=== PATIENT | female | born 1965 | race Caucasian/White ===

== ENCOUNTER → 2016-11-28 | Outpatient (CLI) | payer OTHER ==
[2016-11-28 09:40] LABS: BASO % 0.5 % (0.0-1.0); EOS # 0.2 K/mm3 (0.0-0.50); LARGE UNSTAINED CELL # 0.2 K/mm3 (0.0-0.4); LARGE UNSTAINED CELL % 2.6 % (0.0-4.0); LYMPH # 2.8 K/mm3 (1.5-4.5); LYMPH % 39.4 % (24.0-44.0); MEAN CORPUSCULAR HEMOGLOBIN 34.4 pg (27.0-33.0); MEAN CORPUSCULAR HGB CONC 34.4 g/dl (32.0-36.5); MONO # 0.4 K/mm3 (0.0-0.8); MONO % 5.3 % (0.0-5.0); NEUTROPHILS # 3.5 K/mm3 (1.8-7.7); NEUTROPHILS % 49.2 % (36.0-66.0); PLATELET COUNT, AUTOMATED 227 k/mm3 (150-450); RED CELL DISTRIBUTION WIDTH 13.5 % (11.5-14.5); WHITE BLOOD COUNT 7.1 K/mm3 (4.0-10.0)
--- NOTE | 2016-11-28 09:47 | REP ---
Chest x-ray: Two views. History: Anemia, vitamin D deficiency, asthma. Comparison chest x-ray: January 26, 2009. Findings: The lungs are well inflated and free of infiltrate. The pleural angles are sharp. Cardiomediastinal silhouette is unremarkable. Pulmonary vasculature is not increased. There are minimal degenerative disc changes in the thoracic spine. Impression: No active disease. Signed by Yadiel Swain MD 11/28/2016 06:32 P
[2016-11-28 10:09] LABS: VITAMIN B12 LEVEL 247 PG/ML (247-911)
[2016-11-28 10:14] LABS: ALBUMIN 3.9 GM/DL (3.2-5.2); ALBUMIN/GLOBULIN RATIO 1.22 (1.00-1.93); ALKALINE PHOSPHATASE 88 U/L (45-117); ALT/SGPT 17 U/L (12-78); ANION GAP 6 MEQ/L (8-16); AST/SGOT 10 U/L (15-37); BILIRUBIN,TOTAL 0.5 MG/DL (0.2-1.0); BLOOD UREA NITROGEN 9 MG/DL (7-18); CALCIUM LEVEL 9.1 MG/DL (8.5-10.1); CARBON DIOXIDE LEVEL 30 MEQ/L (21-32); CHLORIDE LEVEL 107 MEQ/L (98-107); CHOLESTEROL LEVEL 170 MG/DL (<200); CREATININE FOR GFR 0.74 MG/DL (0.55-1.02); GLOMERULAR FILTRATION RATE > 60.0 (>51); GLUCOSE, FASTING 94 MG/DL (70-105); POTASSIUM SERUM 4.6 MEQ/L (3.5-5.1); SODIUM LEVEL 143 MEQ/L (136-145); TOTAL PROTEIN 7.1 GM/DL (6.4-8.2); TRIGLYCERIDES LEVEL 90 MG/DL (<150)
== END ==
LOC: M LAB 08:55
PROVIDERS: ATTEND Nurse Practitioner Family
DX: Z13.0 Encounter for screening for diseases of the blood and blood-forming organs and certain disorders involving the immune mechanism (principal); E55.9 Vitamin D deficiency, unspecified; Z13.228 Encounter for screening for other metabolic disorders; D51.8 Other vitamin B12 deficiency anemias; J45.909 Unspecified asthma, uncomplicated

== ENCOUNTER → 2017-01-17 | Outpatient (CLI) | payer OTHER ==
[~2017-01-17] VITALS: Ht 160 cm; Wt 74.8 kg
[~2017-01-17] MED LIST: ALBU17IN INH; LIDOCAINE 2% INJ 100 MG/5 ML SDV (FOR ANES.) As Ordered ONE; NS 1,000 ML IV SCH; PROPOFOL 200 MG/20 ML VIAL As Ordered ONE; SING10TA32 PO; VITA100037 PO; ZYRT10TA2 PO
--- NOTE | 2017-01-17 10:25 | ROOR ---
Patient Name: Kelly Vidal Procedure Date: 01/17/2017 10:03 AM Date of : 1965 Age: 51 Room: [facility] Gender: Female Note Status: Finalized Procedure: Colonoscopy Indications: Screening for colorectal malignant neoplasm Providers: Damian HILLS MD Referring MD: Anel WILKINSON NP Requesting Provider: Medicines: Monitored Anesthesia Care Complications: No immediate complications. Procedure: Pre-Anesthesia Assessment: - The heart rate, respiratory rate, oxygen saturations, blood pressure, adequacy of pulmonary ventilation, and response to care were monitored throughout the procedure. The Colonoscope was introduced through the anus and advanced to the terminal ileum, with identification of the appendiceal orifice and IC valve. The colonoscopy was performed without difficulty. The patient tolerated the procedure well. The quality of the bowel preparation was good. Findings: The perianal and digital rectal examinations were normal. Internal hemorrhoids were found during retroflexion. The hemorrhoids were medium-sized. Two sessile polyps were found in the sigmoid colon. The polyps were 3 to 4 mm in size. These polyps were removed with a cold snare. Resection and retrieval were complete. Two sessile polyps were found in the hepatic flexure. The polyps were 3 to 4 mm in size. These polyps were removed with a cold snare. Resection and retrieval were complete. Multiple medium-mouthed diverticula were found in the sigmoid colon. The exam was otherwise without abnormality on direct and retroflexion views. Impression: - Internal hemorrhoids. - Two 3 to 4 mm polyps in the sigmoid colon, removed with a cold snare. Resected and retrieved. - Two 3 to 4 mm polyps at the hepatic flexure, removed with a cold snare. Resected and retrieved. - Diverticulosis in the sigmoid colon. - The examination was otherwise normal on direct and retroflexion views. Recommendation: - Telephone endoscopist for pathology results in 2 weeks. - If the pathology report reveals adenomatous tissue, then repeat the colonoscopy for surveillance in 3 years. Damian Hills MD Damian HILLS MD 01/17/2017 10:24:51 AM This report has been signed electronically. Number of Addenda: 0 Note Initiated On: 01/17/2017 10:03 AM Estimated Blood Loss: Estimated blood loss: none.
[2017-01-17 10:55] VITALS: BP 125/75
== END | disposition home or self-care (01) ==
LOC: M OPP 08:47
PROVIDERS: ATTEND Internal Medicine Gastroenterology
DX: Z12.11 Encounter for screening for malignant neoplasm of colon (principal); K63.5 Polyp of colon; D12.3 Benign neoplasm of transverse colon; K64.8 Other hemorrhoids; K57.30 Diverticulosis of large intestine without perforation or abscess without bleeding; J45.909 Unspecified asthma, uncomplicated; R06.83 Snoring; Z85.41 Personal history of malignant neoplasm of cervix uteri; D25.9 Leiomyoma of uterus, unspecified; F17.210 Nicotine dependence, cigarettes, uncomplicated; Z96.22 Myringotomy tube(s) status; Z88.0 Allergy status to penicillin; Z88.8 Allergy status to other drugs, medicaments and biological substances; Z79.899 Other long term (current) drug therapy; Z80.1 Family history of malignant neoplasm of trachea, bronchus and lung

== ENCOUNTER → 2017-01-24 | Outpatient (CLI) | payer OTHER ==
[~2017-01-24] MED LIST changes: -LIDOCAINE 2% INJ 100 MG/5 ML SDV (FOR ANES.) As Ordered ONE; -NS 1,000 ML IV SCH; -PROPOFOL 200 MG/20 ML VIAL As Ordered ONE
--- NOTE | 2017-01-24 13:19 | REPMRS ---
Patient History The patient states she had a clinical breast exam in 2016. No known family history of cancer. Digital Mammo Screening Bilat: January 24, 2017 - Exam #: [id number] Bilateral CC and MLO view(s) were taken. Technologist: Keri Bliss, Technologist Prior study comparison: September 02, 2008, bilateral digital mammo screening bilat, performed at [facility]. FINDINGS: There are scattered fibroglandular densities. There has been no change in the appearance of the mammogram from the prior studies. There is a mild amount of residual fibroglandular tissue which is fairly symmetric. There is no interval development of dominant mass, architectural distortion, or clustered microcalcification suggestive of malignancy. ASSESSMENT: BI-RADS/ACR category 1 mammogram. Negative. Recommendation Routine screening mammogram in 1 year (for women over age 40). This mammogram was interpreted with the aid of an FDA-approved computer-aided dectection system. Electronically Signed By: Roderick Ford MD 01/24/17 [id number]
== END ==
LOC: M RAD 12:39
PROVIDERS: ATTEND Nurse Practitioner Family
DX: N64.59 Other signs and symptoms in breast (principal); Z12.31 Encounter for screening mammogram for malignant neoplasm of breast

== ENCOUNTER → 2017-02-14 | Outpatient (REF) | payer OTHER ==
[2017-02-14 19:01] LABS: BASO % 0.3 % (0.0-1.0); EOS # 0.3 K/mm3 (0.0-0.50); EOS % 3.2 % (0.0-3.0); LARGE UNSTAINED CELL # 0.2 K/mm3 (0.0-0.4); LARGE UNSTAINED CELL % 2.1 % (0.0-4.0); LYMPH # 3.1 K/mm3 (1.5-4.5); LYMPH % 30.4 % (24.0-44.0); MEAN CORPUSCULAR HEMOGLOBIN 32.3 pg (27.0-33.0); MEAN CORPUSCULAR HGB CONC 32.4 g/dl (32.0-36.5); MEAN CORPUSCULAR VOLUME 99.6 fl (80.0-96.0); MONO # 0.6 K/mm3 (0.0-0.8); NEUTROPHILS # 5.5 K/mm3 (1.8-7.7); PLATELET COUNT, AUTOMATED 298 k/mm3 (150-450); RED CELL DISTRIBUTION WIDTH 14.3 % (11.5-14.5); WHITE BLOOD COUNT 9.4 K/mm3 (4.0-10.0)
[2017-02-14 19:02] LABS: ANION GAP 6 MEQ/L (8-16); BLOOD UREA NITROGEN 8 MG/DL (7-18); CALCIUM LEVEL 9.2 MG/DL (8.5-10.1); CARBON DIOXIDE LEVEL 28 MEQ/L (21-32); CHLORIDE LEVEL 107 MEQ/L (98-107); CREATININE FOR GFR 0.65 MG/DL (0.55-1.02); GLOMERULAR FILTRATION RATE > 60.0 (>51); GLUCOSE, FASTING 83 MG/DL (70-105); SODIUM LEVEL 141 MEQ/L (136-145)
== END ==
LOC: M LAB REF 16:34
PROVIDERS: ATTEND Nurse Practitioner Family
DX: E55.9 Vitamin D deficiency, unspecified (principal); E78.89 Other lipoprotein metabolism disorders; Z12.39 Encounter for other screening for malignant neoplasm of breast; Z11.4 Encounter for screening for human immunodeficiency virus [HIV]

== ENCOUNTER → 2017-03-25 | Outpatient (CLI) | payer OTHER | LOC: M LAB 11:48 | PROVIDERS: ATTEND Nurse Practitioner Family | DX: Z11.59 Encounter for screening for other viral diseases (principal) ==

== ENCOUNTER → 2017-03-29 | Outpatient (CLI) | payer OTHER | LOC: M LAB 12:22 | PROVIDERS: ATTEND Nurse Practitioner Family | DX: Z13.9 Encounter for screening, unspecified (principal) ==

== ENCOUNTER → 2018-01-30 | Outpatient (CLI) | payer OTHER | LOC: M RAD 14:14 | DX: Z12.31 Encounter for screening mammogram for malignant neoplasm of breast (principal); E65 Localized adiposity | CPT/HCPCS: 77067 ==

== ENCOUNTER → 2018-04-07 | Outpatient (REF) | payer OTHER, MEDICAID ==
[2018-04-07 19:14] LABS: BASO % 0.5 % (0.0-1.0); HEMOGLOBIN 16.9 g/dl (12.0-15.5); IMMATURE GRANULOCYTE % 0.5 % (0-3.0); LYMPH # 2.9 10^3/uL (1.5-4.5); LYMPH % 33.8 % (24.0-44.0); MEAN CORPUSCULAR HEMOGLOBIN 32.9 pg (27.0-33.0); MEAN CORPUSCULAR HGB CONC 33.1 g/dl (32.0-36.5); MEAN CORPUSCULAR VOLUME 99.2 fl (80.0-96.0); MONO # 0.6 10^3/uL (0.0-0.8); MONO % 6.5 % (0.0-5.0); NEUTROPHILS % 58.7 % (36.0-66.0); PLATELET COUNT, AUTOMATED 283 10^3/uL (150-450); RED BLOOD COUNT 5.14 10^6/uL (4.00-5.40); RED CELL DISTRIBUTION WIDTH 16.5 % (11.5-14.5); WHITE BLOOD COUNT 8.5 10^3/uL (4.0-10.0)
[2018-04-07 19:59] LABS: ESTIMATED AVERAGE GLUCOSE 134 MG/DL (60-110); HEMOGLOBIN A1c 6.3 %
[2018-04-07 20:00] LABS: HEPATITIS C VIRUS ABY INDEX < 0.0 INDEX (<0.8)
[2018-04-07 20:01] LABS: HIV 1&2 SCREEN CENTAUR NEGATIVE (NEGATIVE)
[2018-04-07 23:11] LABS: ALBUMIN 3.9 GM/DL (3.2-5.2); ALBUMIN/GLOBULIN RATIO 1.08 (1.00-1.93); ALKALINE PHOSPHATASE 87 U/L (45-117); ALT/SGPT 18 U/L (12-78); ANION GAP 8 MEQ/L (8-16); AST/SGOT 12 U/L (7-37); BILIRUBIN,TOTAL 0.4 MG/DL (0.2-1.0); BLOOD UREA NITROGEN 9 MG/DL (7-18); CALCIUM LEVEL 8.9 MG/DL (8.5-10.1); CARBON DIOXIDE LEVEL 28 MEQ/L (21-32); CHLORIDE LEVEL 106 MEQ/L (98-107); CHOLESTEROL LEVEL 215 MG/DL (<200); CHOLESTEROL RISK RATIO 3.909 (<5); FERRITIN 63 NG/ML (8-252); GLOMERULAR FILTRATION RATE > 60.0 (>51); GLUCOSE, FASTING 85 MG/DL (70-100); HDL CHOLESTEROL 55 MG/DL (>40); IRON (FE) 77 UG/DL (50-170); LDL CHOLESTEROL 132.8 MG/DL (<100); NON-HDL-C 160 MG/DL; POTASSIUM SERUM 4.7 MEQ/L (3.5-5.1); SODIUM LEVEL 142 MEQ/L (136-145); TOTAL PROTEIN 7.5 GM/DL (6.4-8.2); TRIGLYCERIDES LEVEL 136 MG/DL (<150)
== END ==
LOC: M LAB REF 17:50
DX: Z13.29 Encounter for screening for other suspected endocrine disorder (principal)

== ENCOUNTER → 2018-07-29 | Outpatient (REF) | payer OTHER ==
[2018-07-29 17:11] LABS: CARBOXYHEMOGLOBIN 6.2 % (0.0-1.5)
[2018-07-31 08:06] LABS: ERYTHROPOIETIN 19.7 mIU/mL (2.6-18.5)
== END ==
LOC: M LAB REF 16:22
DX: D75.1 Secondary polycythemia (principal)

== ENCOUNTER → 2019-06-19 | Outpatient (REF) | payer MEDICARE, MEDICAID ==
[~2019-06-19] MED LIST changes: +ASPI81TA85 PO; +OCEA0.654 NARES; +STIO1AER IN; +VENTAER INH; -VITA100037 PO; +VITA100067 PO; +ZYRT10CA5 PO; -ZYRT10TA2 PO
== END ==
LOC: M LAB REF 16:16
PROVIDERS: ATTEND Nurse Practitioner Family
DX: J02.9 Acute pharyngitis, unspecified (principal)

== ENCOUNTER 2021-05-11 19:29 | Emergency (ER) | payer MEDICAID, MEDICARE, OTHER ==
[~2021-05-11] VITALS: Ht 160 cm; Wt 54.5 kg
[~2021-05-11 19:29] MED LIST changes: +ALB2.5NEB INH; -ASPI81TA85 PO; +ASPI81TA86 PO; +ATRO0.063 INH; +CETI10CA13 PO; +DULE200A INH; +ONDA8TAB8 PO; +OXYC1SOL3 PO; +PROC5TAB57 PO; +TRAZ-252 PO; +VIBR100C FT; +VIBR100C PO; +VIBR50SY PO
[2021-05-11] MEDS ORDERED: LIDOCAINE 2% 5ML JELLY UROJET TOP ONE (20:00)
[2021-05-11] MEDS ORDERED: LIDOCAINE 2% 5ML JELLY UROJET As Ordered ONE (20:01)
--- NOTE | 2021-05-11 20:37 | REP ---
INDICATION: abdominal pain, constipation COMPARISON: None. TECHNIQUE: Supine view of the abdomen and pelvis. FINDINGS: Percutaneous gastrostomy tube appears to be in satisfactory position. Air and stool-filled loops of small and large bowel are relatively nonspecific in appearance. No organomegaly. No abnormal calcifications. Skeletal structures intact. IMPRESSION: Bowel gas pattern is nonspecific. If the patient remains symptomatic consider CT of the abdomen and pelvis for further investigation. <Electronically signed by Hung Elizondo > 05/11/21 [id number]
[2021-05-11] MEDS ORDERED: ANUSOL HC 25MG SUPP PR ONE (20:45)
[2021-05-11 21:27] LABS: HEMATOCRIT 32.4 % (36.0-47.0); HEMOGLOBIN 10.5 g/dl (12.0-15.5); MEAN CORPUSCULAR HEMOGLOBIN 31.7 pg (27.0-33.0); MEAN CORPUSCULAR HGB CONC 32.4 g/dl (32.0-36.5); MEAN CORPUSCULAR VOLUME 97.9 fl (80.0-96.0); PLATELET COUNT, AUTOMATED 307 10^3/uL (150-450); RED BLOOD COUNT 3.31 10^6/uL (4.00-5.40); WHITE BLOOD COUNT 7.1 10^3/uL (4.0-10.0)
[2021-05-11 21:33] LABS: ALT/SGPT 37 U/L (12-78); BILIRUBIN,DIRECT < 0.1 MG/DL (0.0-0.2); BILIRUBIN,TOTAL 0.2 MG/DL (0.2-1.0); LIPASE 81 U/L (73-393); TOTAL PROTEIN 6.1 GM/DL (6.4-8.2)
[2021-05-11] MEDS ORDERED: ISOVUE-370 76% 100ML VIAL As Ordered ONE (21:55)
[2021-05-11 22:25] LABS: ANISOCYTOSIS 1+; ATYPICAL LYMPH 8 % (0-5); LYMPHOCYTES 14 % (16-44); METAMYELOCYTES 2 % (0-0); MONOCYTES 13 % (0-5); MYELOCYTES 5 % (0-0); NEUTROPHILS 51 % (28-66); PLATELET ESTIMATE NORMAL (NORMAL); POLYCHROMASIA 1+
--- NOTE | 2021-05-12 00:36 | REPVR ---
PROCEDURE INFORMATION: Exam: CT Abdomen And Pelvis With Contrast Exam date and time: 05/11/2021 10:18 PM Age: 56 years old Clinical indication: Abdominal pain; Localized; Other: Rectal; Additional info: Rectal pain TECHNIQUE: Imaging protocol: Computed tomography of the abdomen and pelvis with contrast. Radiation optimization: All CT scans at this facility use at least one of these dose optimization techniques: automated exposure control; mA and/or kV adjustment per patient size (includes targeted exams where dose is matched to clinical indication); or iterative reconstruction. Contrast material: ISOVUE 370; Contrast volume: 100 ml; Contrast route: INTRAVENOUS (IV); COMPARISON: CR Abdomen,Flat Plate KUB 05/11/2021 7:50 PM FINDINGS: Tubes, catheters and devices: Gastrostomy tube is in the stomach. Lungs: There is bibasilar atelectasis. Liver: There are innumerable heterogeneously hypodense lesions in the liver, some of which are confluent, largest confluency lesion in the right lower lobe measuring up to 5.5 cm in conglomerate. Gallbladder and bile ducts: The gallbladder is normal. No intrahepatic or extrahepatic biliary ductal dilatation is seen. Pancreas: There is pancreatic ductal prominence, the pancreatic duct measuring 3.4 mm. No focal pancreatic mass is seen. Spleen: Normal. No splenomegaly. Adrenal glands: No adrenal mass is identified. The adrenal glands appear plump bilaterally. Kidneys and ureters: There is no evidence of hydronephrosis. No renal, ureteral, or bladder calculi are seen. There is a simple appearing 11 mm left renal cortical cyst. Stomach and bowel: Retained fecal material is seen in the colon, most prominent in the rectum. There is mural thickening of the rectosigmoid colon. Correlate with clinical information regarding colitis. No bowel obstruction is seen. Appendix: The appendix is not clearly visualized. Correlate with surgical history. There is no focal inflammatory process in the right lower quadrant to indicate acute appendicitis. Intraperitoneal space: There is no free intraperitoneal air visualized. There is no evidence of free intraperitoneal or pelvic fluid. Vasculature: Atherosclerotic vascular disease is noted. There is no evidence of an abdominal aortic aneurysm. Lymph nodes: No lymphadenopathy is seen. Urinary bladder: The bladder is normal. Reproductive: Unremarkable as visualized. Bones/joints: No acute fracture or destructive osseous lesions identified. IMPRESSION: 1. Numerous hepatic lesions, some of which are confluent, consistent with metastatic disease. Correlate with history of primary neoplasm. 2. Gastrostomy tube in the stomach. 3. Rectosigmoid mural thickening indicates colitis. No bowel obstruction. COMMENTS: Consistent with the [employer]'s Incidental Findings Committee white paper (J Am Eyal Radiol 2018): Any incidental renal lesion less than 1 cm or classified as too small to characterize, or any incidental cystic renal lesion characterized as simple-appearing, is likely benign. No follow-up imaging is recommended for these lesions per consensus recommendations based on imaging criteria. Electronically signed by: Ladonna Perdomo On 05/12/2021 00:35:35 AM
[2021-05-12] MEDS ORDERED: FLEET ENEMA PR ONE (00:50)
[2021-05-12] MEDS ORDERED: SENN8.8S11 PEG (00:53)
[2021-05-12] MEDS ORDERED: MIRA3350 PO (00:53)
[2021-05-12] MEDS ORDERED: ANUS25SU PR (00:54)
[2021-05-12] MEDS ORDERED: ONDANSETRON 4MG/2ML VIAL IV ONE (01:50)
[2021-05-12 02:12] VITALS: BP 112/66
--- NOTE | 2021-05-12 07:51 | ED PDOC ---
Post-Departure Follow-Up radiology repor tfaxed to spencer Linares Sarah MD May 12, 2021 07:51
[2021-06-28] MEDS ORDERED: ACET1TAB55 PEG (10:52)
[2021-06-28] MEDS ORDERED: GOOD8.6T2 PEG (10:52)
== END 2021-05-12 02:15 | disposition home or self-care (01) ==
LOC: M ED 19:29
DX: K59.00 Constipation, unspecified (principal); K64.9 Unspecified hemorrhoids; Z93.1 Gastrostomy status; J44.9 Chronic obstructive pulmonary disease, unspecified; K76.9 Liver disease, unspecified; Z79.899 Other long term (current) drug therapy; Z88.0 Allergy status to penicillin; Z88.2 Allergy status to sulfonamides; Z88.8 Allergy status to other drugs, medicaments and biological substances
CPT/HCPCS: 36415; 74018; 74177; 80047; 80076; 83605; 83690; 85025; 93041; 96374; 99284; J2405; Q9967

== ENCOUNTER 2021-05-23 09:47 | Emergency (ER) | payer MEDICAID, MEDICARE, OTHER ==
[~2021-05-23] VITALS: Ht 160 cm; Wt 53.6 kg
[~2021-05-23 09:47] MED LIST changes: +ANUS25SU PR; +MIRA3350 PO; +SENN8.8S11 PEG
[2021-05-23] MEDS ORDERED: METO1TAB87 PEG (09:59)
[2021-05-23] MEDS ORDERED: ISOVUE-370 76% 100ML VIAL As Ordered ONE (11:07)
--- NOTE | 2021-05-23 12:14 | REPVR ---
PROCEDURE INFORMATION: Exam: CT Neck With Contrast Exam date and time: 05/23/2021 11:13 AM Age: 56 years old Clinical indication: Mass, lump, or swelling in neck; Other: Tracheostomy site; Prior surgery; Additional info: Swelling R/O abscess at tracheostomy site TECHNIQUE: Imaging protocol: Computed tomography images of the neck with contrast. Radiation optimization: All CT scans at this facility use at least one of these dose optimization techniques: automated exposure control; mA and/or kV adjustment per patient size (includes targeted exams where dose is matched to clinical indication); or iterative reconstruction. Contrast material: ISOVUE 370; Contrast volume: 75 ml; Contrast route: INTRAVENOUS (IV); COMPARISON: No relevant prior studies available. FINDINGS: Nasopharynx: Unremarkable. Oropharynx: Unremarkable. No significant tonsillar enlargement. Hypopharynx: There may be focal soft tissue thickening along the left posterior hypopharyngeal wall. Larynx: There is masslike thickening of the left aryepiglottic fold and false cord. The left piriform sinus is effaced. Retropharyngeal space: Unremarkable. Submandibular/Parotid glands: Normal. Glands are normal in size. Thyroid: Normal. No enlarged or calcified nodules. Lymph nodes: Unremarkable. No lymphadenopathy. Trachea: Tracheostomy tube is in place. Lungs: Unremarkable as visualized. Bones/joints: Unremarkable. No acute fracture. Soft tissues: There is a suggestion of soft tissue induration and focal skin thickening at the tracheostomy insertion site. There is no well delineated fluid collection to suggest abscess. IMPRESSION: 1. Indwelling tracheostomy tube with soft tissue induration and ill-defined fluid at the insertion site. No well delineated fluid collection to suggest abscess. 2. Masslike thickening of the left aryepiglottic fold and false cord, worrisome for neoplasm. Electronically signed by: Heather Valverde On 05/23/2021 12:14:13 PM
[2021-05-23] MEDS ORDERED: AMPICILLIN SOD/SULBACTAM SOD 1.5 GM in D5W MINI-BAG PLUS 50 ML IV ONE (12:45)
[2021-05-23] MEDS ORDERED: AUGM875T28 PO (13:35)
[2021-05-23 14:05] VITALS: BP 105/56
--- NOTE | 2021-05-24 10:19 | ED PDOC ---
Post-Departure Follow-Up dr brady and dr morse faxed formal report of ct neck for fu Andreea Aguilar MD May 24, 2021 10:19
== END 2021-05-23 14:07 | disposition home or self-care (01) ==
LOC: M ED 09:47
DX: J95.02 Infection of tracheostomy stoma (principal); J44.9 Chronic obstructive pulmonary disease, unspecified; E78.5 Hyperlipidemia, unspecified; C34.90 Malignant neoplasm of unspecified part of unspecified bronchus or lung; F17.200 Nicotine dependence, unspecified, uncomplicated; Z79.899 Other long term (current) drug therapy; Z88.0 Allergy status to penicillin; Z88.2 Allergy status to sulfonamides; Z88.8 Allergy status to other drugs, medicaments and biological substances
CPT/HCPCS: 70491; 80047; 96365; 99284; Q9967

== ENCOUNTER → 2021-06-30 | Outpatient (CLI) | payer OTHER ==
[~2021-06-30] MED LIST changes: +ACET1TAB55 PEG; +AUGM875T28 PO; +GOOD8.6T2 PEG; +METO1TAB87 PEG
--- NOTE | 2021-06-30 14:42 | RADONC.CN ---
Radiation Oncology Hx/Consult Radiation Oncology Consult Date of Service: Jun 30, 2021 Pt Identifier Kelly Vidal is a 56 year old female former smoker who presented with subacute hoarseness, throat pain and acute respiratory failure in April 2021. 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 She underwent staging studies which showed innumerable liver metastases. She had a tracheostomy and PEG She was started on chemotherapy as an inpatient at [facility] on 04/24/21. She has subsequently completed 4 cycles of carboplatin/etoposide and is beginning atezolizumab maintenance. She is seen today for consideration of consolidative RT, and also for evaluation of a left supraglottic lesion of uncertain origin. Diagnosis/Treatment History Oncologic History 2019 noted onset of sore throat 2020 noted onset of hoarseness March-April 2021 Increasing SOB 04/04/21 Presented to [facility] with hypoxia, was found to have mediastinal mass and extensive RLL pneumonia/atelectasis and transferred to [facility] ICU. 04/05/21 CT chest ([facility]) with 8.7 x 7.0 cm mediastinal mass, RLL collapse versus pneumonia 04/17/21 Mediastinoscopy and biopsy showing small cell carcinoma 04/22/21 MRI brain negative 04/22/21 CT abdomen pelvis with innumerable liver metastases 04/25/21 Bone scan negative 05/02/21 Discharged home, received 1st cycle chemotherapy @ [facility] 05/23/21 Presented to [facility] ED with swelling at trach site, CT neck showing supraglottic mass Chemotherapy Carboplatin/etoposide/atezolizumab 4 cycles 04/24/21-06/29/21 Interval History Here with her son who is the primary specialist wound care at this time. He reports Kelly has remained on 8L trach collar O2 at home, they have not attempted to wean. She is tolerating tube feeds. Plan is for tracheostomy exchange and biopsy of supraglottic mass on 07/11/21. She has no pain today. Trach puts out clear mucus which is easily cleared. She has good cough. Reports main goal is to eat/drink/ and talk again. Son is [id number] dad and they do not see need for home care at this time. Past Medical History: COPD Exphysema Tachycardia Past Surgical History: Appendectomy PEG Trach Mediastinoscopy Family History: No family history of cancer Social History: Former smoker 90 pack year, quit at time of cancer diagnosis Never drinker Allergies / Meds Allergies: Coded Allergies: Penicillins (Verified Adverse Reaction, Mild, restlessness, fidgety, 06/28/21) Sulfa (Sulfonamide Antibiotics) (Verified Adverse Reaction, Mild, nervous, 06/28/21) levofloxacin (Verified Adverse Reaction, Mild, nervousness, 06/28/21) Home Meds Active Scripts Sennosides (Senna) 8.8 Mg/5 Ml Syrup, 10 ML PEG BID for 30 Days, #600 ML Prov:JAIRON PERALTA MD 05/12/21 Ondansetron (Ondansetron Odt) 8 Mg Tab.rapdis, 8 MG PO Q8HP PRN for NAUSEA OR VOMITING, #24 TAB 11 Refills Prov:ELAINA MONTERO MD 05/05/21 Reported Medications Acetaminophen (Acetaminophen) 325 Mg Tablet, 2 TAB PEG PRN PRN for PAIN LEVEL 1-4 06/28/21 Sennosides/Docusate Sodium (Stimulant Laxative Plus Tablet) 1 Each Tablet, 1 PEG QHS 06/28/21 Metoprolol Tartrate (Metoprolol Tartrate) 25 Mg Tablet, 12.5 MG PEG BID 05/23/21 Trazodone HCl (Trazodone HCl) 50 Mg Tablet, 1 TAB PO QPM for 30 Days, #30 TAB 05/04/21 Oxycodone HCl (Oxycodone HCl) 5 Mg/5 Ml Solution, 2-5 ML PO QHS PRN for ANXIETY MDD 30 Milliliter(s) for 5 Days, #150 ML 05/04/21 Ipratropium [place] (Atrovent Hfa) 12.9 Gm Hfa.aer.ad, 2 PUFF INH QID, #12.9 GRAM 05/04/21 Albuterol Sulfate (Albuterol Sulfate) 2.5 Mg/0.5 Ml Vial.neb, 2.5 MG INH, ZENAIDA 05/04/21 Albuterol Sulfate (Ventolin Hfa) 108 Mcg/Act Aer, 2 PUFF INH Q4-6HP PRN for wheezing for 30 Days, #1 INHALER 07/29/18 Montelukast Sodium (Singulair) 10 Mg Tab, 10 MG PO DAILY, TAB 01/10/17 Discontinued Reported Medications Prochlorperazine (Prochlorperazine Maleate) 5 Mg Tablet, 1 TAB PO QID for psychosis for 5 Days, #20 TAB 05/04/21 Cetirizine HCl (Allergy Relief) 10 Mg Capsule, 1 CAP PO DAILY for allergy symptoms for 30 Days, #30 CAP 05/04/21 Discontinued Scripts Amoxicillin/Potassium Clav (Augmentin 875-125 Tablet) 1 Each Tablet, 1 TAB PO BID for 10 Days, #20 TAB Prov:Martin Marin M.D. 05/23/21 Polyethylene Glycol 3350 (Miralax) 119 Gm Powder, 17 GM PO QAM, #1 BOTTLE dilute in first water flush in morning Prov:JAIRON PERALTA MD 05/12/21 Doxycycline Hyclate (Vibramycin) 100 Mg Capsule, 100 MG FT Q12H for 10 Days, #20 CAP 1 Refill MAY OPEN CAPSULE, MIX CONTENT WITH WATER AND ADMINISTER THROUGH G-TUBE. FLUSH TUBE WITH WATER AFTERWARD Prov:ELAINA MONTERO MD 05/05/21 Review of Systems General: Reports: ROS Unobtainable (Non-verbal) Vital Signs Wt 111 lbs T 96.3 P 79 RR 20 BP 88/54 O2 100% on 8L Pain 0 Fatigue 0 General Exam: Alert, Cooperative, No Acute Distress Eye Exam: PERRLA, EOMI ENT EXAM: Other ENT (Complete head and neck exam performed: She is edentulous, there are no visible lesions in the oral mucosal tongue, FOM, soft palate, or oropharyx. There are no palpable lesions in the buccal, gingival, FOM, BOT or tonsils. There is no trismus, the neck is supple, no palpable adenopathy, the trach site is CDI, there is no jose angel-stomal swelling or induration, there is preserved laryngeal crepitus. ) Chest Exam: Clear to auscultation, Normal air movement, Wheezing (Scattered expiratory wheezes ) Heart Exam: Rate Normal, Regular Rhythm Abdomen Exam: Soft, Other (PEG site CDI) Extremity Exam: Edema Skin Exam: Nl turgor and temperature; Negative: Lesion Neuro Exam: Normal Gait, Cranial Nerves 3-12 NL Psych Exam: Mental status NL Other Physical Findings Laryngoscopy: The patient provided consent to be scoped. Cetacaine was introduced in the right nare for anesthesia, the scope was introduced and passed without difficulty to the nasopharynx which appeared normal and without mucosal lesions, the scope was then passed to the oropharynx, there were no lesions present on the posterior pharyngeal wall. The BL BOT were symmetrical and clear with the usual lymphoid appearance, the vallecula was clear, the epiglottis was upright in orientation and there were no lesions on the lingual surface. The right pyriform sinus os is patent, the left however is not, there are no lesions visible there but there is mass effect toward the left AE fold. The right vocal fold is freely mobile and without lesion. The left supraglottis there is a exophytic red lobulated tumor which has fixed the left hemilarynx, the lesion is 3 cm AP in extent, it is bounded by the laryngeal surface of the epiglottis anteriorly, the posterior pharyngeal wall posteriorly, the left AE fold laterally and it does not involve the right larynx medially. There is s ignificant mass effect to the left. The scope was withdrawn without incident and the patient tolerated the procedure well. Diagnostic and Laboratory Diagnostic Review Radiologic images, relevant labs and pathology reports were personally reviewed and discussed with Ms. Vidal. Assessment and Plan Impression Ms. Vidal is a 56 year old female former smoker who presented with subacute hoarseness, throat pain and acute respiratory failure in April 2021. 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 She underwent staging studies which showed innumerable liver metastases. She had a tracheostomy and PEG She was started on chemotherapy as an inpatient at [facility] on 04/24/21. She has subsequently completed 4 cycles of carboplatin/etoposide and is beginning atezolizumab maintenance. She is seen today for consideration of consolidative RT, and also for evaluation of a left supraglottic lesion of uncertain origin. 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 Vidal regarding the diagnosis at hand and available therapeutic options. With respect to her symptoms, I believe she would tolerate a wean from her current 8L trach collar O2. I suggest that they strive to minimize to 2-3L in the coming days, this way she would be able to use a portable concentrator which would improve her mobility and QOL at home. Her main issue/bother is the trach which she badly wants to be rid of. I reviewed her course, imaging, and pathology to date which is complicated. She has a small cell carcinoma. Based on the chest scan from 04/05/21 which showed a large mediastinal mass and a possible ANA MARIA lesion which could represent, but is not conclusive for, a lung primary. 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 The presence of a tumor in the left hemilarynx (which was not apparent during her course at [facility] as it was not imaged) and the morphology (polypoid) on exam today supports this. Just as likely however based on her extensive smoking history and course to date, she may have synchronous primary cancers, primary SCLC of the left lung, and primary SCC of the supraglottis, she has no neck adenopathy associated with the lesion on CT neck from May. I favor that the laryngeal lesion is SCC based on the apparent lack of response to carboplatin/etoposide (it is persistent after 4 cycles), this is in contrast to the chest disease which I believe has responded although dedicated response assessment imaging is pending (the upper mediastinum was visible on the CT neck from May in the midst of chemotherapy and there was marked regression of the mass). At any rate, she has pending biopsy of the supraglottic mass which will answer this question decisively. This will happen on 07/11/21. With respect to current systemic therapy Dr. Jamison is continuing Atezolizumab maintenance. He plans to re-image soon. Knowing that the mediastinal mass was small cell carcinoma, I propose that we pursue consolidative RT to the chest to mitigate the risk of local relapse, this is supported by the CREST study which showed an advantage to consolidative chest RT, particularly those with residual mass. With respect to the larynx, I would offer her the same treatment regardless of the histology, given the oncologic priority of systemic therapy in the management of extensive small cell carcinoma, I would not give definitive treatment to this site rather 10-15 fractions of palliative RT. I envision 45 Gy in 15 fractions to both sites simultaneously with 3D planning and daily CBCT. We may be able to treat with a monoisocentric setup depending on the extent of the residual chest volume. With respect to the brain, I would wait to obtain MRI head until after completion of RT. Based on her response to this and the results of the remaining body staging imaging we can weigh the potential risks versus benefits of PCI. I did discuss prognosis with them today as they both wanted my opinion. I discussed that the usual life expectancy of SCLC is measured in months-few years with treatment, and that initial response to systemic therapy is good, but that it does not guarantee lasting remission. My goals for palliative RT are to improve her respiratory status and allow her to be free of the tracheostomy by treating the larynx, and to prevent relapse in the mediastinum. We discussed the logistics of receiving radiation therapy in detail including the need for a 1-time planning session. This can occur next week. We reviewed the side effects of RT, including fatigue, skin reaction, esophagitis and pneumonitis. After discussing the risks, benefits and alternatives to radiation therapy, Ms. Vidal was amenable to pursuing radiotherapy. All questions were answered to the patient's satisfaction. We instructed the patient that if there were any questions,concerns or changes in clinical status in the interim to contact us. Recommendations Palliative RT to mediastinum/larynx (will aim to start tx post biopsy on 07/11/21) 30-45 Gy in 10-15 fractions 3D with daily CBCT Portable O2 concentrator Rx to [facility] Billing Statement Total time of [67] minutes was spent preparing for the visit [3], obtaining HPI [10], examining the patient [10], reviewing diagnostic tests [11], discussing management options [18], coordinating care [6], and writing this note [9]. RADHA TAVAREZ MD Jun 30, 2021 13:27
== END ==
LOC: M ONCR 09:51
PROVIDERS: ATTEND General Practice
DX: C34.90 Malignant neoplasm of unspecified part of unspecified bronchus or lung (principal); C78.7 Secondary malignant neoplasm of liver and intrahepatic bile duct; J44.9 Chronic obstructive pulmonary disease, unspecified; Z72.0 Tobacco use; Z88.0 Allergy status to penicillin; Z88.1 Allergy status to other antibiotic agents; Z92.21 Personal history of antineoplastic chemotherapy; Z93.0 Tracheostomy status; Z93.1 Gastrostomy status
CPT/HCPCS: 31575; G0463

== ENCOUNTER → 2021-07-03 | Outpatient (CLI) | payer OTHER ==
[~2021-07-03] MED LIST changes: +ISOVUE-370 76% 100ML VIAL As Ordered ONE
--- NOTE | 2021-07-05 05:50 | REP ---
INDICATION: LUNG CA COMPARISON: Outside examination dated 04/05/2021 TECHNIQUE: Axial contrast enhanced images from the thoracic inlet to the upper abdomen with coronal and sagittal reformations using 75 ml Isovue 370 intravenous contrast material. This CT examination was performed using the following dose reduction techniques: Automated exposure control, adjustment of mA and/or kv according to the patient's size, and use of iterative reconstruction technique. 75 cc Isovue 370 intravenous contrast material administered without complication. FINDINGS: Tracheostomy is in stable satisfactory position. The mediastinum demonstrates extensive conglomerate adenopathy/soft tissue, but demonstrates significant improvement as compared with prior examination. This area of masslike adenopathy currently measures roughly 3.7 x 3.9 x 2.5 cm. The tracheobronchial tree remains patent and relatively normal. Thoracic aorta, pulmonary vasculature, and heart/pericardium are relatively normal/stable with mild atherosclerotic changes to the aorta and coronary arteries again noted. No cardiomegaly or pericardial effusion. The lung pearson demonstrate mild chronic interstitial changes similar to prior examination and are otherwise well aerated. The previously noted large area of consolidation involving the right lower lobe has resolved with only minimal residual linear platelike scarring suggested anteriorly. No new consolidation or obvious suspicious nodule/mass. No effusion. No pneumothorax. The osseous structures are relatively normal and without definite acute metastatic focus. Upper abdomen demonstrates normal bilateral adrenal glands. Innumerable hepatic hypodensities concerning for metastatic foci as well as the possibility of few benign cysts and possible cavernous hemangioma in the right lobe. IMPRESSION: 1. Significant but improved mediastinal adenopathy. 2. Previous right lower lobe consolidation resolved and the lung pearson are relatively clear without obvious acute process. 3. Hepatic lesions suggesting metastatic disease as well as possible few scattered hepatic cysts and possible cavernous hemangioma in the posterior segment right lobe. <Electronically signed by Hung Elizondo > 07/05/21 0546
== END ==
LOC: M RAD 15:20
PROVIDERS: ATTEND Specialist
DX: C34.90 Malignant neoplasm of unspecified part of unspecified bronchus or lung (principal); Z93.0 Tracheostomy status; R59.0 Localized enlarged lymph nodes; I70.0 Atherosclerosis of aorta; I25.10 Atherosclerotic heart disease of native coronary artery without angina pectoris; K76.89 Other specified diseases of liver
CPT/HCPCS: 71260; Q9967

== ENCOUNTER → 2021-07-06 | Outpatient (CLI) | payer MEDICAID, MEDICARE, OTHER ==
[~2021-07-06] MED LIST changes: -ISOVUE-370 76% 100ML VIAL As Ordered ONE
== END ==
LOC: M LABSMTC 09:28
PROVIDERS: ATTEND Anesthesiology
DX: Z01.812 Encounter for preprocedural laboratory examination (principal); Z20.822 Contact with and (suspected) exposure to COVID-19

== ENCOUNTER → 2021-07-07 | Outpatient (CLI) | payer MEDICAID, MEDICARE, OTHER ==
--- NOTE | 2021-07-07 16:37 | ECGEPIP ---
[facility] Test Date: 2021-07-07 Pat Name: AMALIA HILARIO Department: Room: - Gender: Female Senior Pricing Analyst: rf : 1965 Requested By: Max Linares Order Number: [id number] Reading MD: Ottoniel Honeycutt Measurements Intervals [place] Rate: 86 P: 77 RI: 124 QRS: 63 QRSD: 80 T: 51 QT: 342 QTc: 409 Interpretive Statements Normal sinus rhythm Normal EKG Comparison tracing not on file Electronically Signed on 07-07-2021 16:37:18 EDT by Ottoniel Honeycutt
== END ==
LOC: M EKG 10:32
PROVIDERS: ATTEND Family Medicine Addiction Medicine
DX: R00.0 Tachycardia, unspecified (principal)

== ENCOUNTER 2021-07-11 07:04 | Day surgery (SDC) | payer OTHER, MEDICARE ==
[~2021-07-11] VITALS: Ht 160 cm; Wt 49.8 kg
[~2021-07-11 07:04] MED LIST changes: +LR 1,000 ML IV ONE; +dexameTHASONE 4 MG/ML 1ML VIAL (J1100 PER 1MG) IV ONE
[2021-07-11] MEDS ORDERED: LIDOCAINE 2% 100MG/5ML SDV (FOR ANES.) As Ordered ONE (08:05)
[2021-07-11] MEDS ORDERED: MIDAZOLAM INJ 2MG/2ML VIAL (J2250 PER 1MG) As Ordered ONE (08:05)
[2021-07-11] MEDS ORDERED: propofoL 200 MG/20 ML VIAL As Ordered ONE (08:05)
[2021-07-11] MEDS ORDERED: fentaNYL 100 MCG/2 ML INJECTION (J3010) As Ordered ONE ×2 (08:06→09:34)
[2021-07-11] MEDS ORDERED: LIDOCAINE W/EPINEPHRINE 1% 20ML VIAL As Ordered ONE (08:07)
[2021-07-11] MEDS ORDERED: METHYLENE BLUE 0.5% (5MG/ML) 10 ML AMP (PROVAYBLUE) As Ordered ONE (08:07)
[2021-07-11] MEDS ORDERED: OXYMETAZOLINE 0.05% NASAL SPRAY (AFRIN) As Ordered ONE (08:07)
[2021-07-11] MEDS ORDERED: ONDANSETRON 4MG/2ML VIAL As Ordered ONE (08:42)
[2021-07-11] MEDS ORDERED: KETOROLAC 60MG 2ML VIAL As Ordered ONE (08:42)
[2021-07-11] MEDS ORDERED: PHENYLephrine 500MCG 5ML (100MCG/ML) SYRINGE As Ordered ONE (08:43)
[2021-07-11] MEDS ORDERED: ROCURONIUM BROMIDE 50 MG/5 ML VIAL As Ordered ONE (09:06)
[2021-07-11] MEDS ORDERED: SUGAMMADEX SODIUM 500 MG/5 ML VIAL (BRIDION) As Ordered ONE (09:08)
[2021-07-11] MEDS ORDERED: SILVER NITRATE APPLICATOR As Ordered ONE ×3 (09:30→09:44)
[2021-07-11] MEDS ORDERED: LR 1,000 ML IV SCH (10:25)
[2021-07-11] MEDS ORDERED: ONDANSETRON 4MG/2ML VIAL IV PRN (10:25)
[2021-07-11] MEDS ORDERED: fentaNYL 100 MCG/2 ML INJECTION (J3010) IV PRN (10:25)
[2021-07-11] MEDS ORDERED: oxyCODONE 5MG TAB PO PRN (10:25)
[2021-07-11 12:45] VITALS: BP 103/55
--- NOTE | 2021-07-18 07:37 | RO ---
OPERATIVE NOTE DATE OF OPERATION: 07/11/2021 PREOPERATIVE DIAGNOSIS: Left vocal cord paralysis, dysphonia, mass, left supraglottic area and tracheostomy complication. POSTOPERATIVE DIAGNOSIS: 1. Left vocal cord paralysis, dysphonia, mass, left supraglottic area and tracheostomy complication. 2. Granulation of the tracheostomy stoma. PROCEDURE PERFORMED: 1. Direct suspension microlaryngoscopy with biopsy of the left supraglottic mass. 2. Exchange of the tracheostomy tube, #6 Shiley cuffed fenestrated tube 3. Chemical cauterization of the granuloma around tracheal stoma using silver nitrate. SURGEON: Juan Pablo Terry MD COST REPORT CLERK: ANESTHESIA: General. CLINICAL PREAMBLE: This 56-year-old woman initially presented to a local hospital with left pneumonia in April,. 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 She also had a left vocal cord paralysis causing airway obstruction leading to the need for performance of tracheostomy to secure the airway. She has a Shiley #6 tracheostomy tube. She presented to my office for additional management for the tracheostomy care as well as management of the left supraglottic mass. Procedures listed above have been discussed with the patient in detail. She understood and consented to the procedure. OR NARRATION: The patient was identified in preholding and brought to the operating room in stable condition. In supine position on the operating table, the patient received general anesthesia via the existing tracheostomy tube. The patient was prepped and draped in the usual fashion for the procedure. Bimanual palpation of the oral cavity, floor of the mouth, oral tongue, base of tongue, lateral posterior pharyngeal wall showed no evidence of discrete nodule. The upper dentition and alveolus were then protected. The Dedo-Pilling laryngoscope was then introduced into the oral cavity to allow inspection of the mucosa and the oral cavity, oropharynx, piriform sinuses, supraglottis and the vocal cords. The mass was noted to be emanating from the left aryepiglottic fold extending posteriorly towards the left arytenoid. The piriform sinuses were clear. At this time, the Dedo-Pilling laryngoscope was suspended on a Laura stand. Biopsies were then obtained from the left supraglottic mass. Hemostasis was achieved by placing cottonoid pledgets soaked in Afrin solution. At this time, attention was turned to tracheostomy care. Upon inspection of tracheostomy stoma, significant granulation tissue was noted to be surrounding the entire circumference of the tracheal stoma. Using the silver nitrate, the granulation tissue was successfully obliterated via the chemical cauterization means with the silver nitrate. At this time, the tracheostomy tube was then removed. The new #6 cuffed fenestrated Shiley tracheostomy tube was then successfully inserted into the tracheal stoma into the tracheal lumen under direct visualization without complication. The trach tie was then applied. At the end of the procedure, the sponge and instrument counts were correct. No complications were encountered. Estimated blood loss was approximately 5 mL. General anesthesia was reversed and the patient was awakened and taken to recovery room in stable condition. KUSH
[2021-07-18] MEDS ORDERED: LIDO1CRE42 TOP (13:05)
[2021-07-31] MEDS ORDERED: MIRA3350 PEG (12:17)
[2021-07-31] MEDS ORDERED: OXYC1SOL3 PO (12:17)
[2021-08-07] MEDS ORDERED: SENN8.8S11 PEG (12:04)
[2021-08-07] MEDS ORDERED: MIRA3350 PEG (12:04)
[2021-08-07] MEDS ORDERED: OXYC1SOL3 PO (12:04)
[2021-08-07] MEDS ORDERED: ONDA8TAB8 PO (12:04)
== END 2021-07-11 12:55 | disposition home or self-care (01) ==
LOC: M SDC 07:04
PROVIDERS: ATTEND Otolaryngology
DX: C32.1 Malignant neoplasm of supraglottis (principal); J38.01 Paralysis of vocal cords and larynx, unilateral; E55.9 Vitamin D deficiency, unspecified; E78.5 Hyperlipidemia, unspecified; E66.09 Other obesity due to excess calories; R00.0 Tachycardia, unspecified; D75.1 Secondary polycythemia; Z79.899 Other long term (current) drug therapy; Z79.51 Long term (current) use of inhaled steroids; I10 Essential (primary) hypertension; Z87.891 Personal history of nicotine dependence; Z92.21 Personal history of antineoplastic chemotherapy; J44.9 Chronic obstructive pulmonary disease, unspecified; Z88.0 Allergy status to penicillin; Z88.2 Allergy status to sulfonamides
CPT/HCPCS: 31536; 31613; 88305; J1100; J1885; J2250; J2370; J2405; J3010; Q9968

== ENCOUNTER → 2021-07-25 | Outpatient (CLI) | payer OTHER ==
[~2021-07-25] MED LIST changes: +LIDO1CRE42 TOP; -LR 1,000 ML IV ONE; -dexameTHASONE 4 MG/ML 1ML VIAL (J1100 PER 1MG) IV ONE
--- NOTE | 2021-07-25 12:14 | REP ---
INDICATION: SMALL CELL LUNG CANCER. COMPARISON: CT 07/03/2021. TECHNIQUE: Four AP and lateral views thoracic spine. FINDINGS: There is no compression fracture or malalignment. There is normal thoracic kyphosis. There is mild diffuse spurring. There is mild disc space narrowing at several midthoracic levels. The posterior elements are intact. A tracheostomy tube appears to be in good position. Right central venous catheter is seen with the tip in the superior vena cava. A PEG tube overlies the stomach. IMPRESSION: Mild diffuse degenerative changes. No compression fracture and no definite radiographic evidence of a bone lesion. <Electronically signed by Roderick Ford > 07/25/21 1211
== END ==
LOC: M RAD 10:43
PROVIDERS: ATTEND Specialist
DX: C34.90 Malignant neoplasm of unspecified part of unspecified bronchus or lung (principal); Z93.0 Tracheostomy status; Z93.1 Gastrostomy status; M46.04 Spinal enthesopathy, thoracic region; M51.34 Other intervertebral disc degeneration, thoracic region

== ENCOUNTER → 2021-08-03 | Outpatient (RCR) | payer OTHER ==
--- NOTE | 2021-07-24 13:15 | RADENCPD ---
Date/Time of Encounter Date of Encounter: Jul 24, 2021 Time of Encounter: 13:09 Encounter Discussed laryngeal biopsy findings with Kelly and her son. This showed SCC as opposed to the ES SCLC in the chest and liver. I discussed adding 3 additional fractions of treatment to the larynx to effectively control the tumor with a definitive dose, that way if she has prolonged survival from the SCLC (which is the oncologic priority), her risk of relapse and respiratory complications from the laryngeal tumor will be less. I shared my hope that the tracheostomy could come out once healing post RT is complete. I will not add neck marylu RT in her case, as her prognosis is overall guarded from the SCLC and the benefit in this setting limited. I will see her back after completion in 1 month for MRI brain and PCI decision making. RADHA TAVAREZ MD Jul 24, 2021 13:15
[~2021-08-03] MED LIST changes: +MIRA3350 PEG
== END ==
LOC: M ONCR 07-05 07:49
PROVIDERS: ATTEND General Practice
DX: C32.1 Malignant neoplasm of supraglottis (principal)

== ENCOUNTER 2021-08-10 11:30 | Outpatient (RCR) | payer OTHER ==
[2021-08-21] MEDS ORDERED: OXYC1SOL3 PO (09:40)
[2021-08-21] MEDS ORDERED: [UNRECOGNIZED DRUG - CODE] EX (09:40)
[2021-08-29] MEDS ORDERED: NAPR-855 PO (13:05)
== END 2021-09-03 ==
LOC: M ONCR 11:30
PROVIDERS: ATTEND General Practice
DX: C32.1 Malignant neoplasm of supraglottis (principal)

== ENCOUNTER → 2021-08-21 | Outpatient (CLI) | payer OTHER ==
[~2021-08-21] MED LIST changes: +[UNRECOGNIZED DRUG - CODE] EX
--- NOTE | 2021-08-21 09:38 | RADENCPD ---
Date/Time of Encounter Date of Encounter: Aug 21, 2021 Time of Encounter: 09:34 Encounter Kelly came in today for a skin check. On exam she has grade 2 moist desquamation about the tracheostomy site. She has increased pain from this. Plan: Polymem foam to neck daily Lidocaine cream PRN Aquaphor to dry red areas Increase oxycodone to 10 mg q4h PRN Add aleve BID Follow up in 1 week RADHA TAVAREZ MD Aug 21, 2021 09:38
== END ==
LOC: M ONCR 09:00
PROVIDERS: ATTEND General Practice
DX: C34.12 Malignant neoplasm of upper lobe, left bronchus or lung (principal); C32.1 Malignant neoplasm of supraglottis; Z92.3 Personal history of irradiation; Z93.0 Tracheostomy status

== ENCOUNTER → 2021-09-08 | Outpatient (CLI) | payer MEDICAID, OTHER ==
[~2021-09-08] MED LIST changes: +NAPR-855 PO; +PROHANCE 279.3MG/ML 15ML VIAL As Ordered ONE
--- NOTE | 2021-09-08 14:49 | REPVR ---
PROCEDURE INFORMATION: Exam: MR Head Without and With Contrast Exam date and time: 09/08/2021 12:01 PM Age: 56 years old Clinical indication: Condition or disease; History of cancer (specify primary cancer site): ; Primary cancer: Lung CA; Additional info: Small cell lung CA ? mets TECHNIQUE: Imaging protocol: MR of the head without and with intravenous contrast. Contrast material: PROHANCE; Contrast volume: 10 ml; Contrast route: INTRAVENOUS (IV); COMPARISON: CT Neck with contrast 05/23/2021 11:08 AM FINDINGS: Brain: There is no extra-axial collection or intra-axial mass. There are scattered foci of T2/FLAIR white matter hyperintensity, nonspecific but typically small-vessel ischemia in this age group. There is no abnormal enhancement within the brain. Cerebral ventricles: Normal. No ventriculomegaly. Bones/joints: There may be osseous metastatic disease involving the skull calvarium, clivus and proximal cervical spine. Mastoid air cells: There is focal fluid within right mastoid air cells. Orbital cavity: Unremarkable. Soft tissues: Unremarkable. IMPRESSION: No evidence of intracranial metastatic disease. Suspected osseous metastatic disease. Electronically signed by: Heather Valverde On 09/08/2021 14:49:02 PM
== END ==
LOC: M RAD 10:35
PROVIDERS: ATTEND General Practice
DX: C32.1 Malignant neoplasm of supraglottis (principal); C34.12 Malignant neoplasm of upper lobe, left bronchus or lung
CPT/HCPCS: 70553; A9576

== ENCOUNTER → 2021-09-12 | Outpatient (CLI) | payer MEDICAID, OTHER ==
[~2021-09-12] MED LIST changes: -PROHANCE 279.3MG/ML 15ML VIAL As Ordered ONE
--- NOTE | 2021-09-12 13:04 | RADONC ---
Radiation Oncology Hx/FUP Radiation Oncology Hx/FUP Date of Service: Sep 12, 2021 Pt Identifier Kelly Vidal is a 56 year old female former smoker who presented with subacute hoarseness, throat pain and acute respiratory failure in April 2021. 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 She underwent staging studies which showed innumerable liver metastases. She had a tracheostomy and PEG She was started on chemotherapy as an inpatient at [facility] on 04/24/21. She subsequently completed 4 cycles of carboplatin/etoposide did not start atezolizumab maintenance. 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 She underwent consolidative chest RT 45 Gy in 15 fractions 07/18/21-08/07/21 as well as definitive RT to the supraglottic lesion 54 Gy in 18 fractions from 07/18/21-08/10/21. She is seen today for consideration of PCI. Diagnosis/Treatment History Oncologic History 2019 noted onset of sore throat 2020 noted onset of hoarseness March-April 2021 Increasing SOB 04/04/21 Presented to [facility] with hypoxia, was found to have mediastinal mass and extensive RLL pneumonia/atelectasis and transferred to [facility] ICU. 04/05/21 CT chest ([facility]) with 8.7 x 7.0 cm mediastinal mass, RLL collapse versus pneumonia 04/17/21 Mediastinoscopy and biopsy showing small cell carcinoma 04/22/21 MRI brain negative 04/22/21 CT abdomen pelvis with innumerable liver metastases 04/25/21 Bone scan negative 05/02/21 Discharged home, received 1st cycle chemotherapy @ [facility] 05/23/21 Presented to [facility] ED with swelling at trach site, CT neck showing supraglottic mass 07/11/21 Left supraglottic biopsy showing SCC Chemotherapy Carboplatin/etoposide/atezolizumab 4 cycles 04/24/21-06/29/21 07/18/21-08/07/21 45 Gy in 15 fractions to the left chest 07/18/21-08/10/21 54 Gy in 18 fractions to the left supraglottis (omitting elective neck coverage) Recent data: 09/08/21 MRI brain Negative for metastases Interval History Kelly is here with her supportive son. She has no remaining skin complaints around the trach site, all of the RT reaction has resolved. She has ENT follow up on Saturday. She is feeling well overall. No pain. She has not seen medical oncology since the completion of chemotherapy, nor has she been receiving immu notherapy. She has not had restaging body scans. 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 Apply pad to affected skin of neck daily. Prov:RADHA TAVAREZ MD 08/21/21 Oxycodone HCl (Oxycodone HCl) 5 Mg/5 Ml Solution, 10 ML PO Q4HP PRN for pain MDD 60ml for 14 Days, #840 ML Prov:RADHA TAVAREZ MD 08/21/21 Polyethylene Glycol 3350 (Miralax) 119 Gm Powder, 17 GRAM PEG QHS for constipation, #255 GRAM dissolve in water Prov:RADHA TAVAREZ MD 08/07/21 Sennosides (Senna) 8.8 Mg/5 Ml Syrup, 10 ML PEG BID for 30 Days, #600 ML Prov:RADHA TAVAREZ MD 08/07/21 Ondansetron (Ondansetron Odt) 8 Mg Tab.rapdis, 8 MG PO Q8HP PRN for NAUSEA OR VOMITING, #24 TAB 11 Refills Prov:RADHA TAVAREZ MD 08/07/21 Lidocaine/Prilocaine (Lidocaine-Prilocaine Cream) 2.5%/2.5% Cream..g., 1 APLCT TOP ASDIRECTED, #30 GRAM 2 Refills Prov:NOEL ROCHA MD 07/18/21 Reported Medications Naproxen (Naproxen) 375 Mg Tablet, 1 TAB PO PRN for 30 Days, #60 TAB with food 08/29/21 Acetaminophen (Acetaminophen) 325 Mg Tablet, 2 TAB PEG PRN PRN for PAIN LEVEL 1- 4 06/28/21 Sennosides/Docusate Sodium (Stimulant Laxative Plus Tablet) 1 Each Tablet, 1 PEG QHS 06/28/21 Metoprolol Tartrate (Metoprolol Tartrate) 25 Mg Tablet, 12.5 MG PEG BID 05/23/21 Trazodone HCl (Trazodone HCl) 50 Mg Tablet, 1 TAB PO QPM for 30 Days, #30 TAB 05/04/21 Ipratropium [place] (Atrovent Hfa) 12.9 Gm Hfa.aer.ad, 2 PUFF INH QID, #12.9 GRAM 05/04/21 Albuterol Sulfate (Albuterol Sulfate) 2.5 Mg/0.5 Ml Vial.neb, 2.5 MG INH, ZENAIDA 05/04/21 Albuterol Sulfate (Ventolin Hfa) 108 Mcg/Act Aer, 2 PUFF INH Q4-6HP PRN for wheezing for 30 Days, #1 INHALER 07/29/18 Montelukast Sodium (Singulair) 10 Mg Tab, 10 MG PO DAILY, TAB 01/10/17 Review of Systems Review of Systems Constitutional: Denies: Fatigue, Weight Loss Eyes: Denies: Pain HEENT: Denies: Head Aches, Sore Throat Skin: Denies: Rash Pulmonary: Reports: Dyspnea; Denies: Pleuritic Chest Pain Cardiovascular: Denies: Chest Pain Gastrointestinal: Denies: Abdominal Pain Musculoskeletal: Denies: Neck pain, Back pain Neurological: Denies: Weakness, Numbness Psych: Reports: Mood Normal Physical Examination Vital Signs Ht 63" Wt 108 lbs (stable) P 82 RR 18 BP 98/60 O2 97% Pain 0 Fatigue 1 General Exam: Alert, Cooperative, No Acute Distress Eye Exam: PERRLA, EOMI ENT EXAM: Atraumatic, Mucous membr. moist/pink, Other ENT (Trach site CDI, no residual skin reaction in the treatment field. No discharge from trach site) Chest Exam: Clear to auscultation Heart Exam: Rate Normal Abdomen Exam: Soft Extremity Exam: Negative: Edema Skin Exam: Nl turgor and temperature Neuro Exam: Normal Gait, Cranial Nerves 3-12 NL Psych Exam: Mental status NL Diagnostic and Laboratory Diagnostic Review Radiologic images, relevant labs and pathology reports were personally reviewed and discussed with Ms. Vidal. Assessment and Plan Impression Assessment Ms. Vidal is a 56 year old female with a history of former smoker who presented with subacute hoarseness, throat pain and acute respiratory failure in April 2021. 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 She underwent staging studies which showed innumerable liver metastases. She had a tracheostomy and PEG She was started on chemotherapy as an inpatient at [facility] on 04/24/21. She subsequently completed 4 cycles of carboplatin/etoposide did not start atezolizumab maintenance. 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 She underwent consolidative chest RT 45 Gy in 15 fractions 07/18/21-08/07/21 as well as definitive RT to the supraglottic lesion 54 Gy in 18 fractions from 07/18/21-08/10/21. She is seen today for consideration of PCI. She is doing well. Her acute RT skin reaction at the neck has resolved. She is seeing ENT this week. Hopeful there has been significant regression of the supraglottic lesion and that the tracheostomy can be removed. She seems to have been lost to medical oncology follow up, therefore I will ensure she has a visit scheduled with them when she leaves today. I will order immediate restaging body scans for their use in determining appropriate systemic therapy for her. I will defer to them ordering body scans from now on. With respect to the brain, she has no evidence of metastases. We discussed the pros and cons of PCI, including PFS and possible OS advantage, versus fatigue and neurocognitive sequelae. The alternative of MRI surveillance was also discussed thoroughly including the [place] study which demonstrated non- inferiority of the approach. We also discussed namenda as an adjuvant to PCI. She and her son asked good questions about PCI and would like time to decide. Once they decide I will either facilitate the treatment or order a 3 month surveillance MRI. Performance Status ECOG 1 Plan Patient to decide on PCI or MRI surveillance and alert me CT chest abdomen pelvis now to restage body Patient to see medical oncology on 09/22/21 Ms. Vidal was encouraged to call with questions or concerns in the interim period. Billing Statement Total time of [37] minutes was spent preparing for the visit [3], obtaining HPI [5], examining the patient [2], reviewing diagnostic tests [4], discussing management options [13], coordinating care [4], and writing this note [6]. RADHA TAVAREZ MD Sep 12, 2021 13:04
== END ==
LOC: M ONCR 11:21
PROVIDERS: ATTEND General Practice
DX: C34.12 Malignant neoplasm of upper lobe, left bronchus or lung (principal); C32.1 Malignant neoplasm of supraglottis; Z92.3 Personal history of irradiation; Z92.21 Personal history of antineoplastic chemotherapy; Z88.0 Allergy status to penicillin; Z88.2 Allergy status to sulfonamides; Z79.899 Other long term (current) drug therapy

== ENCOUNTER → 2021-09-20 | Outpatient (CLI) | payer MEDICAID ==
[~2021-09-20] MED LIST changes: +GASTROGRAFIN SOLUTION 30ML (Q9963) As Ordered ONE; +ISOVUE-370 76% 100ML VIAL As Ordered ONE
--- NOTE | 2021-09-20 15:50 | REP ---
INDICATION: LUNG CA COMPARISON: 07/03/2021 TECHNIQUE: Axial contrast enhanced images from the thoracic inlet to the upper abdomen with coronal and sagittal reformations using 75 ml Isovue 370 intravenous contrast material. This CT examination was performed using the following dose reduction techniques: Automated exposure control, adjustment of mA and/or kv according to the patient's size, and use of iterative reconstruction technique. FINDINGS: The lung pearson demonstrate chronic interstitial changes and scattered scarring. Few small nodular densities are identified including a 6 mm new nodule in the periphery of the right upper lobe (image 26) highly concerning for active metastatic disease. No effusion. No pneumothorax. Tracheobronchial tree is patent. Tracheostomy is in stable satisfactory position. Mediastinal soft tissue appears decreased but again concerning for adenopathy and malignancy. Thoracic aorta, pulmonary vasculature, and heart/pericardium are stable/relatively normal. Rwycfh-M-[place] again identified with tip in the SVC. Visualized thyroid gland appears normal. Osseous structures demonstrate mottled sclerotic changes involving multiple ribs and vertebral bodies consistent with osseous metastatic disease. Limited upper abdomen demonstrates similar hepatic metastatic lesions as compared with prior examination. IMPRESSION: 1. New small pulmonary nodules including 6 mm right upper lobe nodule concerning for active metastatic disease. Decreased but continued soft tissue in the mediastinum again consistent with malignancy. 2. Osseous and hepatic metastatic lesions again noted. <Electronically signed by Hung Elizondo > 09/20/21 1777
--- NOTE | 2021-09-20 16:00 | REP ---
INDICATION: SCLC RESTAGE. COMPARISON: 05/11/2021 TECHNIQUE: Axial contrast-enhanced images from the lung bases to the pubic symphysis using 100 cc Isovue 370 intravenous contrast material. Delayed images of the abdomen along with coronal and sagittal reformations obtained. This CT examination was performed using the following dose reduction techniques: Automated exposure control, adjustment of mA and/or kv according to the patient's size, and the use of iterative reconstruction technique. FINDINGS: Liver demonstrates innumerable, but fewer hypodensities consistent with metastatic disease along with stable hemangioma in the left lateral segment. Spleen, pancreas, gallbladder, and bilateral adrenal glands and right kidney are normal/stable. Left kidney again includes 10 mm hypodensity consistent with cyst. The enteric system is without obstruction or obvious acute inflammatory process although evaluation is limited due to lack of contrast and paucity of intraperitoneal fat.. Pelvis demonstrates normal bladder and prior hysterectomy. No ascites. No free air. No obvious intraperitoneal or retroperitoneal adenopathy. Abdominal aorta and vasculature appear normal. Diffuse osseous metastatic disease appears considerably increased compared to prior examination. IMPRESSION: 1. Hepatic metastatic lesions appear decreased although still prominent. 2. Significantly increased diffuse osseous metastatic lesions. <Electronically signed by Hung Elizondo > 09/20/21 [id number]
== END ==
LOC: M RAD 13:50
PROVIDERS: ATTEND General Practice
DX: C32.1 Malignant neoplasm of supraglottis (principal); C34.12 Malignant neoplasm of upper lobe, left bronchus or lung; R91.8 Other nonspecific abnormal finding of lung field
CPT/HCPCS: 71260; 74177; Q9967

== ENCOUNTER 2021-09-26 07:16 | Outpatient (RCR) | payer MEDICAID ==
[~2021-09-26 07:16] MED LIST changes: -CEPH25SS PEG; -CEPH25SS PO; +SING10TA32 PEG; -SING10TA32 PO; +TRAZ-252 PEG; -TRAZ-252 PO
[2021-09-26] MEDS ORDERED: CEPH25SS PO (15:15)
[2021-09-26] MEDS ORDERED: CEPH25SS PEG (15:16)
[2021-10-16] MEDS ORDERED: OXYC1SOL3 PO (09:46)
[2021-10-16] MEDS ORDERED: MEMA10TA19 PEG (09:46)
[2021-10-16] MEDS ORDERED: MEMA1TAB3 PEG (09:46)
[2021-11-04] MEDS ORDERED: SENN8.8S11 PEG (23:50)
[2021-11-14] MEDS ORDERED: LACT20EL PR (12:26)
[2021-11-14] MEDS ORDERED: DEXA1CON PEG (12:26)
[2021-11-14] MEDS ORDERED: MORP1SOL4 PEG (12:26)
[2021-11-15] MEDS ORDERED: RELI150T PEG (10:57)
[2021-11-15] MEDS ORDERED: RELI150T PO (10:57)
[2021-11-15] MEDS ORDERED: [UNRECOGNIZED DRUG - CODE] SC (14:09)
== END 2021-10-03 ==
LOC: M ONCR 07:16
PROVIDERS: ATTEND General Practice
DX: Z51.0 Encounter for antineoplastic radiation therapy (principal); C32.1 Malignant neoplasm of supraglottis; C34.12 Malignant neoplasm of upper lobe, left bronchus or lung; M54.2 Cervicalgia

== ENCOUNTER → 2021-09-26 | Outpatient (CLI) | payer MEDICAID ==
[~2021-09-26] MED LIST changes: +CEPH25SS PEG; +CEPH25SS PO; -GASTROGRAFIN SOLUTION 30ML (Q9963) As Ordered ONE; -ISOVUE-370 76% 100ML VIAL As Ordered ONE
--- NOTE | 2021-09-26 14:36 | REP ---
INDICATION: SWELLING OF NECK. COMPARISON: None. TECHNIQUE: Real-time sonographic evaluation over the region of MediPort device placement the right neck with Doppler FINDINGS: There are no cystic or solid masses. No abnormalities are identified. IMPRESSION: Negative exam <Electronically signed by Vidal Darden > 09/26/21 [id number]
== END ==
LOC: M RAD 13:27
PROVIDERS: ATTEND General Practice
DX: C32.1 Malignant neoplasm of supraglottis (principal); C34.12 Malignant neoplasm of upper lobe, left bronchus or lung; Z95.828 Presence of other vascular implants and grafts

== ENCOUNTER 2021-10-04 13:37 | Emergency (ER) | payer MEDICAID, MEDICARE ==
[~2021-10-04] VITALS: Ht 160 cm; Wt 49.1 kg
[~2021-10-04 13:37] MED LIST changes: +CEPH25SS PEG; +CEPH25SS PO
[2021-10-04 13:38] VITALS: BP 91/54
[2021-10-04] MEDS ORDERED: NS 1,000 ML IV ONE (15:25)
[2021-10-04 16:25] LABS: BASO % 0.4 % (0.0-1.0); HEMATOCRIT 32.3 % (36.0-47.0); HEMOGLOBIN 10.5 g/dl (12.0-15.5); LYMPH # 0.5 10^3/uL (1.5-5.0); LYMPH % 5.9 % (24.0-44.0); MEAN CORPUSCULAR HEMOGLOBIN 32.4 pg (27.0-33.0); MEAN CORPUSCULAR HGB CONC 32.5 g/dl (32.0-36.5); MEAN CORPUSCULAR VOLUME 99.7 fl (80.0-96.0); MONO # 1.1 10^3/uL (0.0-0.8); MONO % 13.9 % (2.0-8.0); NEUTROPHILS # 6.2 10^3/uL (1.5-8.5); NEUTROPHILS % 79.4 % (36.0-66.0); PLATELET COUNT, AUTOMATED 242 10^3/uL (150-450); RED BLOOD COUNT 3.24 10^6/uL (4.00-5.40); WHITE BLOOD COUNT 7.8 10^3/uL (4.0-10.0)
[2021-10-04 16:45] LABS: ALT/SGPT 21 U/L (12-78); BILIRUBIN,DIRECT < 0.1 MG/DL (0.0-0.2); BILIRUBIN,TOTAL 0.4 MG/DL (0.2-1.0); BLOOD UREA NITROGEN 20 MG/DL (7-18); CALCIUM LEVEL 9.1 MG/DL (8.5-10.1); CARBON DIOXIDE LEVEL 35 MEQ/L (21-32); CHLORIDE LEVEL 102 MEQ/L (98-107); CREATININE FOR GFR 0.54 MG/DL (0.55-1.30); GLOMERULAR FILTRATION RATE > 60.0 (>51); GLUCOSE, FASTING 79 MG/DL (70-100); LIPASE 107 U/L (73-393); POTASSIUM SERUM 4.6 MEQ/L (3.5-5.1); SODIUM LEVEL 141 MEQ/L (136-145); TOTAL PROTEIN 6.7 GM/DL (6.4-8.2)
[2021-10-16] MEDS ORDERED: MEMA1TAB3 PEG (09:46)
[2021-10-16] MEDS ORDERED: MEMA10TA19 PEG (09:46)
[2021-10-16] MEDS ORDERED: OXYC1SOL3 PO (09:46)
[2021-11-04] MEDS ORDERED: SENN8.8S11 PEG (23:50)
[2021-11-14] MEDS ORDERED: DEXA1CON PEG (12:26)
[2021-11-14] MEDS ORDERED: MORP1SOL4 PEG (12:26)
[2021-11-14] MEDS ORDERED: LACT20EL PR (12:26)
[2021-11-15] MEDS ORDERED: RELI150T PEG (10:57)
[2021-11-15] MEDS ORDERED: RELI150T PO (10:57)
[2021-11-15] MEDS ORDERED: [UNRECOGNIZED DRUG - CODE] SC (14:09)
== END 2021-10-04 17:27 | disposition home or self-care (01) ==
LOC: M ED 13:37
DX: K94.29 Other complications of gastrostomy (principal); I95.9 Hypotension, unspecified; J45.909 Unspecified asthma, uncomplicated; Z85.818 Personal history of malignant neoplasm of other sites of lip, oral cavity, and pharynx; K59.00 Constipation, unspecified; Z87.891 Personal history of nicotine dependence; Z86.79 Personal history of other diseases of the circulatory system; Z79.899 Other long term (current) drug therapy; Z88.0 Allergy status to penicillin; Z88.2 Allergy status to sulfonamides; Z88.8 Allergy status to other drugs, medicaments and biological substances

== ENCOUNTER → 2021-10-18 | Outpatient (CLI) | payer MEDICAID, OTHER ==
[~2021-10-18] MED LIST changes: +BARIUM SULFATE 700 MG TABLET (E-Z-DISK) As Ordered ONE; +E-Z-PAQUE 96% w/w SUSP 176GM BTL As Ordered ONE; +MEMA10TA19 PEG; +MEMA1TAB3 PEG; -SING10TA32 PEG; +SING10TA32 PO; -TRAZ-252 PEG; +TRAZ-252 PO; +VARIBAR NECTAR 40% w/v 240ML SUSP BTL As Ordered ONE; +VARIBAR PUDDING 40% w/v 230ML TUBE As Ordered ONE
--- NOTE | 2021-10-18 18:01 | REP ---
INDICATION: PARALYSIS OF VOCAL CHORD. COMPARISON: None. TECHNIQUE: The procedure was performed by FLACO Connelly, under the direct supervision of Dr. Sales. The procedure was performed with Denisha Schuster from speech pathology present. 5 ml aliquots of thin, nectar and honey consistency barium was administered. FINDINGS: Penetration of the barium was seen with thin and nectar consistencies. Penetration and aspiration was seen with honey consistency of barium. The detailed report of this examination will be provided by speech pathology. IMPRESSION: Penetration of the barium material was seen with thin and nectar consistencies. Penetration and aspiration was seen with honey consistency barium. Please see detailed speech pathology report for further evaluation. 0.1 minutes of fluoroscopy time was utilized for this procedure. Some fluoroscopic images are performed with last image hold technology. These images require no additional radiation <Electronically signed by Tamy Young > 10/18/21 [id number] <Electronically signed by Gerard Sales > 10/18/21 [id number]
== END ==
LOC: M RAD 09:13
PROVIDERS: ATTEND Otolaryngology
DX: J38.01 Paralysis of vocal cords and larynx, unilateral (principal)

== ENCOUNTER 2021-10-30 08:39 | Outpatient (RCR) | payer MEDICAID, OTHER ==
[~2021-10-30 08:39] MED LIST changes: -BARIUM SULFATE 700 MG TABLET (E-Z-DISK) As Ordered ONE; -E-Z-PAQUE 96% w/w SUSP 176GM BTL As Ordered ONE; +SING10TA32 PEG; -SING10TA32 PO; -VARIBAR NECTAR 40% w/v 240ML SUSP BTL As Ordered ONE; -VARIBAR PUDDING 40% w/v 230ML TUBE As Ordered ONE
[2021-10-30] MEDS ORDERED: MORP1SOL PO (09:21)
[2021-11-04] MEDS ORDERED: SENN8.8S11 PO (23:50)
[2021-11-04] MEDS ORDERED: OXYC1SOL3 PO (23:50)
[2021-11-04] MEDS ORDERED: med rec comment (23:52)
== END 2021-11-03 ==
LOC: M ONCR 08:39
PROVIDERS: ATTEND General Practice
DX: Z51.0 Encounter for antineoplastic radiation therapy (principal); C32.1 Malignant neoplasm of supraglottis; C34.12 Malignant neoplasm of upper lobe, left bronchus or lung

== ENCOUNTER 2021-11-04 18:59 | Inpatient (IN) | payer OTHER, MEDICAID ==
[~2021-11-04] VITALS: Ht 160 cm; Wt 44.6 kg
[~2021-11-04 18:59] MED LIST changes: +MORP1SOL PO
[2021-11-04 20:27] LABS: BASO # 0.1 10^3/uL (0.0-0.2); BASO % 0.9 % (0.0-1.0); HEMATOCRIT 31.9 % (36.0-47.0); HEMOGLOBIN 10.2 g/dl (12.0-15.5); LYMPH # 0.5 10^3/uL (1.5-5.0); LYMPH % 8.8 % (24.0-44.0); MEAN CORPUSCULAR HEMOGLOBIN 32.8 pg (27.0-33.0); MEAN CORPUSCULAR VOLUME 102.6 fl (80.0-96.0); MONO # 0.8 10^3/uL (0.0-0.8); NEUTROPHILS % 71.5 % (36.0-66.0); PLATELET COUNT, AUTOMATED 166 10^3/uL (150-450); RED BLOOD COUNT 3.11 10^6/uL (4.00-5.40); WHITE BLOOD COUNT 5.6 10^3/uL (4.0-10.0)
[2021-11-04 20:54] LABS: ALT/SGPT 78 U/L (12-78); BILIRUBIN,DIRECT 0.1 MG/DL (0.0-0.2); BILIRUBIN,TOTAL 0.3 MG/DL (0.2-1.0); BLOOD UREA NITROGEN 21 MG/DL (7-18); CALCIUM LEVEL 9.3 MG/DL (8.5-10.1); CARBON DIOXIDE LEVEL 33 MEQ/L (21-32); CHLORIDE LEVEL 102 MEQ/L (98-107); CREATININE FOR GFR 0.52 MG/DL (0.55-1.30); GLOMERULAR FILTRATION RATE > 60.0 (>51); GLUCOSE, FASTING 102 MG/DL (70-100); LIPASE 525 U/L (73-393); POTASSIUM SERUM 4.5 MEQ/L (3.5-5.1); SODIUM LEVEL 141 MEQ/L (136-145); TOTAL PROTEIN 6.9 GM/DL (6.4-8.2)
[2021-11-04] MEDS: MONTELUKAST 10 MG TAB PEG SCH (21:00)
[2021-11-04] MEDS: SENOKOT S TAB PEG SCH (21:00)
[2021-11-04] MEDS: traZODone 50 MG TAB PEG SCH (21:00)
[2021-11-04] MEDS ORDERED: ISOVUE-370 76% 100ML VIAL As Ordered ONE (21:14)
[2021-11-04] MEDS ORDERED: MORPHINE 4 MG/ML 1ML VIAL/SYRINGE (J2270) IV ONE (23:20)
[2021-11-04] MEDS ORDERED: SENN8.8S11 PO (23:50)
[2021-11-04] MEDS ORDERED: OXYC1SOL3 PO (23:50)
[2021-11-04] MEDS ORDERED: med rec comment (23:52)
[2021-11-04] MEDS ORDERED: HOME MED LIST COMPLETE! XX SCH (23:55)
[2021-11-05] MEDS ORDERED: MORPHINE 2 MG/ML 1ML VIAL (J2270) IV PRN (00:15)
[2021-11-05 01:24] LABS: RSV AMPLIFICATION NEGATIVE (NEGATIVE)
[2021-11-05] MEDS: NS 1,000 ML IV SCH ×2 (03:11→11:08)
[2021-11-05] MEDS ORDERED: BISACODYL 10 MG SUPP PR PRN (03:15)
[2021-11-05 03:20] VITALS: BP 102/62
[2021-11-05] MEDS: MORPHINE 10MG/0.5ML ORAL CONCENTRATE SOLUTION U/D PEG SCH ×2 (04:00→08:00)
[2021-11-05 06:00] VITALS: BP 101/62
[2021-11-05 07:30] LABS: BASO % 0.8 % (0.0-1.0); HEMATOCRIT 30.2 % (36.0-47.0); HEMOGLOBIN 9.6 g/dl (12.0-15.5); LYMPH # 0.4 10^3/uL (1.5-5.0); LYMPH % 8.7 % (24.0-44.0); MEAN CORPUSCULAR HEMOGLOBIN 32.5 pg (27.0-33.0); MEAN CORPUSCULAR HGB CONC 31.8 g/dl (32.0-36.5); MEAN CORPUSCULAR VOLUME 102.4 fl (80.0-96.0); MONO # 0.7 10^3/uL (0.0-0.8); MONO % 15.2 % (2.0-8.0); NEUTROPHILS # 3.5 10^3/uL (1.5-8.5); NEUTROPHILS % 72.6 % (36.0-66.0); PLATELET COUNT, AUTOMATED 156 10^3/uL (150-450); RED BLOOD COUNT 2.95 10^6/uL (4.00-5.40); WHITE BLOOD COUNT 4.8 10^3/uL (4.0-10.0)
[2021-11-05] MEDS: IPRATROPIUM 0.5MG/ALBUTEROL 2.5MG INH SOL UD 3ML (DUONEB) NEB SCH ×3 (08:00→19:30)
[2021-11-05 08:04] LABS: ALBUMIN 2.8 GM/DL (3.2-5.2); ALT/SGPT 71 U/L (12-78); BILIRUBIN,TOTAL 0.2 MG/DL (0.2-1.0); BLOOD UREA NITROGEN 17 MG/DL (7-18); CALCIUM LEVEL 9.1 MG/DL (8.5-10.1); CARBON DIOXIDE LEVEL 31 MEQ/L (21-32); CHLORIDE LEVEL 105 MEQ/L (98-107); CREATININE FOR GFR 0.52 MG/DL (0.55-1.30); GLOMERULAR FILTRATION RATE > 60.0 (>51); GLUCOSE, FASTING 80 MG/DL (70-100); LIPASE 7907 U/L (73-393); POTASSIUM SERUM 4.3 MEQ/L (3.5-5.1); SODIUM LEVEL 141 MEQ/L (136-145); TOTAL PROTEIN 6.4 GM/DL (6.4-8.2)
[2021-11-05] MEDS: MEMANTINE 5MG TABLET (NAMENDA) PEG SCH (09:21)
[2021-11-05] MEDS: SENOKOT S TAB PEG SCH ×2 (09:21→22:40)
[2021-11-05] MEDS: MIRALAX *UNIT DOSE* 17GM PACKET PEG SCH (09:21)
[2021-11-05] MEDS: ENOXAPARIN 30MG/0.3ML SYRINGE (J1650 PER 10MG) SC SCH (09:22)
[2021-11-05] MEDS: D5W/LR 1,000 ML IV SCH ×3 (12:43→22:40)
[2021-11-05] MEDS: KETOROLAC 30 MG/ML 1ML VIAL IV PRN (12:44)
[2021-11-05 14:00] VITALS: BP 123/75
[2021-11-05] MEDS: MORPHINE 2 MG/ML 1ML VIAL (J2270) IV PRN (18:43)
[2021-11-05 22:00] VITALS: BP 112/73
[2021-11-05] MEDS: SIMETHICONE 80MG CHEW TAB PEG PRN (22:40)
[2021-11-05] MEDS: MONTELUKAST 10 MG TAB PEG SCH (22:40)
[2021-11-05] MEDS: traZODone 50 MG TAB PEG SCH (22:40)
[2021-11-06] MEDS: IPRATROPIUM 0.5MG/ALBUTEROL 2.5MG INH SOL UD 3ML (DUONEB) NEB SCH ×4 (01:16→19:11)
[2021-11-06] MEDS: MORPHINE 2 MG/ML 1ML VIAL (J2270) IV PRN ×3 (02:52→22:07)
[2021-11-06] MEDS: D5W/LR 1,000 ML IV SCH ×5 (02:56→23:45)
[2021-11-06] MEDS ORDERED: ONDANSETRON 4MG/2ML VIAL IV PRN (03:05)
[2021-11-06 06:00] VITALS: BP 118/75
[2021-11-06 06:52] LABS: HEMATOCRIT 26.5 % (36.0-47.0); HEMOGLOBIN 8.6 g/dl (12.0-15.5); MEAN CORPUSCULAR HEMOGLOBIN 32.3 pg (27.0-33.0); MEAN CORPUSCULAR HGB CONC 32.5 g/dl (32.0-36.5); MEAN CORPUSCULAR VOLUME 99.6 fl (80.0-96.0); PLATELET COUNT, AUTOMATED 142 10^3/uL (150-450); RED BLOOD COUNT 2.66 10^6/uL (4.00-5.40); WHITE BLOOD COUNT 4.7 10^3/uL (4.0-10.0)
[2021-11-06 07:08] VITALS: O2SAT 93
[2021-11-06 07:19] LABS: ALBUMIN 2.4 GM/DL (3.2-5.2); ALT/SGPT 64 U/L (12-78); BILIRUBIN,TOTAL 0.2 MG/DL (0.2-1.0); BLOOD UREA NITROGEN 10 MG/DL (7-18); CALCIUM LEVEL 8.5 MG/DL (8.5-10.1); CARBON DIOXIDE LEVEL 29 MEQ/L (21-32); CHLORIDE LEVEL 107 MEQ/L (98-107); CREATININE FOR GFR 0.43 MG/DL (0.55-1.30); GLOMERULAR FILTRATION RATE > 60.0 (>51); GLUCOSE, FASTING 145 MG/DL (70-100); LIPASE 1101 U/L (73-393); POTASSIUM SERUM 3.7 MEQ/L (3.5-5.1); SODIUM LEVEL 141 MEQ/L (136-145); TOTAL PROTEIN 5.7 GM/DL (6.4-8.2)
[2021-11-06 07:31] LABS: ATYPICAL LYMPH 2 % (0-5); EOSINOPHILS 1 % (0-3); LYMPHOCYTES 7 % (16-44); MONOCYTES 5 % (0-5); NEUTROPHILS 84 % (28-66); PLATELET ESTIMATE NORMAL (NORMAL)
[2021-11-06] MEDS: KETOROLAC 30 MG/ML 1ML VIAL IV PRN ×2 (08:42→23:58)
[2021-11-06] MEDS: MEMANTINE 5MG TABLET (NAMENDA) PEG SCH (08:42)
[2021-11-06] MEDS: SENOKOT S TAB PEG SCH ×2 (08:42→22:05)
[2021-11-06] MEDS: MIRALAX *UNIT DOSE* 17GM PACKET PEG SCH (08:42)
[2021-11-06] MEDS: ENOXAPARIN 30MG/0.3ML SYRINGE (J1650 PER 10MG) SC SCH (08:42)
[2021-11-06] MEDS ORDERED: dexameTHASONE 20MG/5ML VIAL (J1100 PER 1MG) IV SCH (10:40)
[2021-11-06] MEDS: dexameTHASONE 20MG/5ML VIAL (J1100 PER 1MG) IV SCH (13:51)
[2021-11-06 14:00] VITALS: BP 137/78
[2021-11-06 22:00] VITALS: BP 124/76
[2021-11-06] MEDS: MONTELUKAST 10 MG TAB PEG SCH (22:05)
[2021-11-06] MEDS: SIMETHICONE 80MG CHEW TAB PEG PRN (22:05)
[2021-11-06] MEDS: traZODone 50 MG TAB PEG SCH (22:07)
[2021-11-07] MEDS: IPRATROPIUM 0.5MG/ALBUTEROL 2.5MG INH SOL UD 3ML (DUONEB) NEB SCH ×4 (01:35→19:33)
[2021-11-07] MEDS: MORPHINE 2 MG/ML 1ML VIAL (J2270) IV PRN ×3 (04:16→21:59)
[2021-11-07] MEDS: D5W/LR 1,000 ML IV SCH ×2 (04:17→08:20)
[2021-11-07 06:00] VITALS: BP 111/75
[2021-11-07 06:38] LABS: HEMOGLOBIN 8.7 g/dl (12.0-15.5); MEAN CORPUSCULAR HEMOGLOBIN 32.5 pg (27.0-33.0); MEAN CORPUSCULAR HGB CONC 32.2 g/dl (32.0-36.5); MEAN CORPUSCULAR VOLUME 100.7 fl (80.0-96.0); PLATELET COUNT, AUTOMATED 139 10^3/uL (150-450); RED BLOOD COUNT 2.68 10^6/uL (4.00-5.40); WHITE BLOOD COUNT 4.6 10^3/uL (4.0-10.0)
[2021-11-07 07:08] LABS: ALBUMIN 2.3 GM/DL (3.2-5.2); ALT/SGPT 66 U/L (12-78); BILIRUBIN,TOTAL 0.3 MG/DL (0.2-1.0); BLOOD UREA NITROGEN 3 MG/DL (7-18); CALCIUM LEVEL 8.6 MG/DL (8.5-10.1); CARBON DIOXIDE LEVEL 28 MEQ/L (21-32); CHLORIDE LEVEL 108 MEQ/L (98-107); GLOMERULAR FILTRATION RATE > 60.0 (>51); GLUCOSE, FASTING 123 MG/DL (70-100); LIPASE 424 U/L (73-393); POTASSIUM SERUM 3.4 MEQ/L (3.5-5.1); SODIUM LEVEL 142 MEQ/L (136-145); TOTAL PROTEIN 5.6 GM/DL (6.4-8.2)
[2021-11-07 07:11] LABS: ANISOCYTOSIS 1+; ATYPICAL LYMPH 2 % (0-5); EOSINOPHILS 2 % (0-3); LYMPHOCYTES 8 % (16-44); METAMYELOCYTES 3 % (0-0); MONOCYTES 13 % (0-5); MYELOCYTES 2 % (0-0); NEUTROPHILS 69 % (28-66); PLATELET ESTIMATE NORMAL (NORMAL)
[2021-11-07] MEDS ORDERED: dexameTHASONE 20MG/5ML VIAL (J1100 PER 1MG) IV SCH (09:00)
[2021-11-07] MEDS: dexameTHASONE 20MG/5ML VIAL (J1100 PER 1MG) IV SCH (09:18)
[2021-11-07] MEDS: MIRALAX *UNIT DOSE* 17GM PACKET PEG SCH (09:18)
[2021-11-07] MEDS: MEMANTINE 5MG TABLET (NAMENDA) PEG SCH (09:19)
[2021-11-07] MEDS: SENOKOT S TAB PEG SCH ×2 (09:19→20:06)
[2021-11-07] MEDS: ENOXAPARIN 30MG/0.3ML SYRINGE (J1650 PER 10MG) SC SCH (09:19)
[2021-11-07] MEDS ORDERED: POTASSIUM CHLORIDE 10% LIQ 20 MEQ/15 ML UDC PEG ONE (11:00)
[2021-11-07 14:00] VITALS: BP 103/67
[2021-11-07] MEDS: MONTELUKAST 10 MG TAB PEG SCH (20:06)
[2021-11-07] MEDS: traZODone 50 MG TAB PEG SCH (20:06)
[2021-11-07] MEDS: KETOROLAC 30 MG/ML 1ML VIAL IV PRN (20:12)
[2021-11-07 22:00] VITALS: BP 125/75
[2021-11-08] MEDS: IPRATROPIUM 0.5MG/ALBUTEROL 2.5MG INH SOL UD 3ML (DUONEB) NEB SCH ×2 (01:30→08:29)
[2021-11-08] MEDS: D5W/LR 1,000 ML IV SCH (04:58)
[2021-11-08 06:00] VITALS: BP 113/72
[2021-11-08] MEDS: dexameTHASONE 20MG/5ML VIAL (J1100 PER 1MG) IV SCH (08:25)
[2021-11-08] MEDS: MEMANTINE 5MG TABLET (NAMENDA) PEG SCH (08:25)
[2021-11-08] MEDS: SENOKOT S TAB PEG SCH (08:25)
[2021-11-08] MEDS: MORPHINE 2 MG/ML 1ML VIAL (J2270) IV PRN (08:26)
[2021-11-08] MEDS: ENOXAPARIN 30MG/0.3ML SYRINGE (J1650 PER 10MG) SC SCH (08:26)
[2021-11-08] MEDS: MIRALAX *UNIT DOSE* 17GM PACKET PEG SCH (08:26)
[2021-11-08 09:34] LABS: HEMATOCRIT 29.9 % (36.0-47.0); HEMOGLOBIN 9.7 g/dl (12.0-15.5); MEAN CORPUSCULAR HEMOGLOBIN 32.7 pg (27.0-33.0); MEAN CORPUSCULAR HGB CONC 32.4 g/dl (32.0-36.5); MEAN CORPUSCULAR VOLUME 100.7 fl (80.0-96.0); PLATELET COUNT, AUTOMATED 157 10^3/uL (150-450); RED BLOOD COUNT 2.97 10^6/uL (4.00-5.40); WHITE BLOOD COUNT 5.1 10^3/uL (4.0-10.0)
[2021-11-08] MEDS: KETOROLAC 30 MG/ML 1ML VIAL IV PRN (10:00)
[2021-11-08 10:06] LABS: ALBUMIN 2.5 GM/DL (3.2-5.2); ALT/SGPT 149 U/L (12-78); BILIRUBIN,TOTAL 0.3 MG/DL (0.2-1.0); BLOOD UREA NITROGEN 7 MG/DL (7-18); CALCIUM LEVEL 9.1 MG/DL (8.5-10.1); CARBON DIOXIDE LEVEL 31 MEQ/L (21-32); CHLORIDE LEVEL 104 MEQ/L (98-107); GLOMERULAR FILTRATION RATE > 60.0 (>51); GLUCOSE, FASTING 104 MG/DL (70-100); LIPASE 353 U/L (73-393); POTASSIUM SERUM 3.8 MEQ/L (3.5-5.1); SODIUM LEVEL 140 MEQ/L (136-145); TOTAL PROTEIN 6.1 GM/DL (6.4-8.2)
[2021-11-08] MEDS ORDERED: PRED5ELUD GT (11:09)
== END 2021-11-08 13:18 | disposition home health service (06) | DRG 282 ==
LOC: M ED 18:59 → M ED INP 11-05 00:11 → ENRESERV 11-05 02:05 → M MSPAV 11-05 03:01
PROVIDERS: ADMIT Internal Medicine; ATTEND Internal Medicine
DX: K85.30 Drug induced acute pancreatitis without necrosis or infection (principal); C34.90 Malignant neoplasm of unspecified part of unspecified bronchus or lung; C79.51 Secondary malignant neoplasm of bone; C78.7 Secondary malignant neoplasm of liver and intrahepatic bile duct; Z93.0 Tracheostomy status; Z87.891 Personal history of nicotine dependence; Z88.0 Allergy status to penicillin; Z88.1 Allergy status to other antibiotic agents; Z88.2 Allergy status to sulfonamides; Z79.899 Other long term (current) drug therapy; Z20.822 Contact with and (suspected) exposure to COVID-19; J44.9 Chronic obstructive pulmonary disease, unspecified; R64 Cachexia; K59.00 Constipation, unspecified; E46 Unspecified protein-calorie malnutrition

== ENCOUNTER → 2021-11-14 | Outpatient (CLI) | payer OTHER ==
[~2021-11-14] MED LIST changes: +DEXA1CON PEG; +LACT20EL PR; +MORP1SOL4 PEG; +PRED5ELUD GT; +RELI150T PEG; +RELI150T PO; +SENN8.8S11 PO; +[UNRECOGNIZED DRUG - CODE] SC; +med rec comment
== END ==
LOC: M ONCR 10:52
PROVIDERS: ATTEND General Practice
DX: Z51.0 Encounter for antineoplastic radiation therapy (principal); C34.12 Malignant neoplasm of upper lobe, left bronchus or lung; C32.1 Malignant neoplasm of supraglottis; Z92.3 Personal history of irradiation

== ENCOUNTER 2021-11-16 21:07 | Inpatient (IN) | payer OTHER ==
[~2021-11-16] VITALS: Ht 160 cm; Wt 45.5 kg
[~2021-11-16 21:07] MED LIST changes: -SENN8.8S11 PO; +TRAZ-252 PEG; -TRAZ-252 PO
[2021-11-16 21:46] LABS: ABG BASE EXCESS 6.3 (-2.0-2.0); ABG HCO3 29.6 MEQ/L (22.0-26.0); ABG O2 SATURATION 98.9 % (95.0-99.0); ABG PARTIAL PRESSURE CO2 37.4 mmHg (35.0-45.0); ABG STANDARD HCO3 30.2 MEQ/L (22.0-26.0); ABG TOTAL CO2 30.7 MEQ/L (22.0-29.0); ABG pH (ARTERIAL) 7.516 UNITS (7.350-7.450)
[2021-11-16 22:08] LABS: BASO % 0.4 % (0.0-1.0); HEMATOCRIT 27.5 % (36.0-47.0); HEMOGLOBIN 8.9 g/dl (12.0-15.5); LYMPH # 0.4 10^3/uL (1.5-5.0); LYMPH % 5.5 % (24.0-44.0); MEAN CORPUSCULAR HEMOGLOBIN 32.2 pg (27.0-33.0); MEAN CORPUSCULAR HGB CONC 32.4 g/dl (32.0-36.5); MEAN CORPUSCULAR VOLUME 99.6 fl (80.0-96.0); NEUTROPHILS % 68.4 % (36.0-66.0); PLATELET COUNT, AUTOMATED 185 10^3/uL (150-450); RED BLOOD COUNT 2.76 10^6/uL (4.00-5.40); WHITE BLOOD COUNT 7.3 10^3/uL (4.0-10.0)
[2021-11-16 22:23] LABS: MONO # 1.6 10^3/uL (0.0-0.8)
[2021-11-16 22:24] LABS: MONO % 21.4 % (2.0-8.0)
[2021-11-16 22:33] LABS: ALBUMIN 2.6 GM/DL (3.2-5.2); ALT/SGPT 91 U/L (12-78); BILIRUBIN,DIRECT 0.2 MG/DL (0.0-0.2); BILIRUBIN,TOTAL 0.3 MG/DL (0.2-1.0); BLOOD UREA NITROGEN 19 MG/DL (7-18); CARBON DIOXIDE LEVEL 30 MEQ/L (21-32); CHLORIDE LEVEL 102 MEQ/L (98-107); CREATININE FOR GFR 0.48 MG/DL (0.55-1.30); GLOMERULAR FILTRATION RATE > 60.0 (>51); GLUCOSE, FASTING 109 MG/DL (70-100); LIPASE 226 U/L (73-393); POTASSIUM SERUM 4.3 MEQ/L (3.5-5.1); SODIUM LEVEL 138 MEQ/L (136-145); TOTAL PROTEIN 6.5 GM/DL (6.4-8.2)
[2021-11-16 22:36] LABS: CK-MB VALUE MASS < 1.0 NG/ML (<3.6); CPK CREATINE PHOSPHOKINASE 99 U/L (26-192); MB/CK RELATIVE INDEX 1.01 (< OR =4)
[2021-11-16] MEDS ORDERED: MORPHINE 4 MG/ML 1ML VIAL/SYRINGE (J2270) IV ONE (23:30)
[2021-11-17 00:24] LABS: CK-MB VALUE MASS < 1.0 NG/ML (<3.6); CPK CREATINE PHOSPHOKINASE 109 U/L (26-192); MB/CK RELATIVE INDEX 0.92 (< OR =4)
[2021-11-17] MEDS ORDERED: ISOVUE-370 76% 100ML VIAL As Ordered ONE (00:32)
[2021-11-17] MEDS ORDERED: IPRATROPIUM 0.02% SOLN 0.5MG 2.5ML NEB NEB SCH (02:00)
[2021-11-17] MEDS ORDERED: MORPHINE 2 MG/ML 1ML VIAL (J2270) IV PRN (02:45)
[2021-11-17 03:02] LABS: MAGNESIUM LEVEL 2.2 MG/DL (1.8-2.4)
[2021-11-17] MEDS ORDERED: guaiFENesin DM LIQ 10ML UD PEG PRN (03:15)
[2021-11-17] MEDS ORDERED: ONDANSETRON 4MG/2ML VIAL IV PRN (03:40)
[2021-11-17] MEDS ORDERED: BISACODYL 10 MG SUPP PR PRN (03:40)
[2021-11-17] MEDS ORDERED: NS 1,000 ML IV SCH (04:35)
[2021-11-17] MEDS ORDERED: SIMETHICONE 40MG/0.6ML DROPS 30ML PEG PRN (04:35)
[2021-11-17 05:00] VITALS: BP 110/63
[2021-11-17] MEDS: methylPREDNISolone 125MG 2ML VIAL IV SCH ×2 (05:07→16:31)
[2021-11-17] MEDS: MORPHINE 4 MG/ML 1ML VIAL/SYRINGE (J2270) IV PRN ×2 (05:07→11:35)
[2021-11-17 05:29] LABS: BASO % 0.4 % (0.0-1.0); HEMATOCRIT 26.5 % (36.0-47.0); HEMOGLOBIN 8.7 g/dl (12.0-15.5); LYMPH # 0.4 10^3/uL (1.5-5.0); LYMPH % 5.2 % (24.0-44.0); MEAN CORPUSCULAR HEMOGLOBIN 32.6 pg (27.0-33.0); MEAN CORPUSCULAR HGB CONC 32.8 g/dl (32.0-36.5); MEAN CORPUSCULAR VOLUME 99.3 fl (80.0-96.0); MONO # 1.1 10^3/uL (0.0-0.8); MONO % 14.8 % (2.0-8.0); NEUTROPHILS # 5.5 10^3/uL (1.5-8.5); NEUTROPHILS % 74.9 % (36.0-66.0); PLATELET COUNT, AUTOMATED 174 10^3/uL (150-450); RED BLOOD COUNT 2.67 10^6/uL (4.00-5.40); WHITE BLOOD COUNT 7.4 10^3/uL (4.0-10.0)
[2021-11-17 05:59] LABS: ALBUMIN 2.6 GM/DL (3.2-5.2); ALT/SGPT 81 U/L (12-78); BILIRUBIN,TOTAL 0.4 MG/DL (0.2-1.0); BLOOD UREA NITROGEN 19 MG/DL (7-18); CALCIUM LEVEL 9.5 MG/DL (8.5-10.1); CARBON DIOXIDE LEVEL 28 MEQ/L (21-32); CHLORIDE LEVEL 104 MEQ/L (98-107); CREATININE FOR GFR 0.44 MG/DL (0.55-1.30); GLOMERULAR FILTRATION RATE > 60.0 (>51); GLUCOSE, FASTING 128 MG/DL (70-100); NT-PRO BNP 148 PG/ML (<125); POTASSIUM SERUM 4.5 MEQ/L (3.5-5.1); SODIUM LEVEL 140 MEQ/L (136-145); TOTAL PROTEIN 6.9 GM/DL (6.4-8.2)
[2021-11-17] MEDS: LEVALBUTEROL 1.25 MG/0.5 ML CONCENTRATE NEB NEB SCH ×3 (06:07→19:17)
[2021-11-17] MEDS ORDERED: ONDA8TAB8 PEG (06:09)
[2021-11-17] MEDS ORDERED: MEMA10TA19 PEG (06:09)
[2021-11-17] MEDS ORDERED: HOME MED LIST COMPLETE! XX SCH (06:10)
[2021-11-17] MEDS: KETOROLAC 30 MG/ML 1ML VIAL IV PRN ×3 (06:33→22:01)
[2021-11-17] MEDS ORDERED: LEVALBUTEROL 1.25 MG/0.5 ML CONCENTRATE NEB NEB PRN (07:25)
[2021-11-17 08:00] VITALS: BP 114/58
[2021-11-17] MEDS: MIRALAX *UNIT DOSE* 17GM PACKET PEG SCH (08:46)
[2021-11-17] MEDS: LIDOCAINE 5% (LIDODERM) PATCH TD SCH (08:46)
[2021-11-17] MEDS ORDERED: DOCUSATE SODIUM 100MG CAPSULE PO SCH (09:00)
[2021-11-17 11:22] VITALS: BP 114/66
[2021-11-17 12:00] VITALS: BP 116/63
[2021-11-17] MEDS: DOCUSATE SOD LIQ 100MG/10ML UDC GT SCH ×2 (13:09→20:13)
[2021-11-17 15:31] VITALS: BP 126/66
[2021-11-17] MEDS: METHYLNALTREXONE BROMIDE 12 MG/0.6 ML VIAL (RELISTOR) SC SCH (15:44)
[2021-11-17] MEDS: MORPHINE 10 MG/ML 1ML VIAL (J2270) IV PRN (16:59)
[2021-11-17] MEDS ORDERED: PROHANCE 279.3MG/ML 5ML VIAL As Ordered ONE (18:32)
[2021-11-17 20:00] VITALS: BP 124/70
[2021-11-17] MEDS: SENNA 8.6 MG TAB (SENOKOT) GT SCH (20:13)
[2021-11-17] MEDS: **NOTE PATIENT COMMENT** MISC XX SCH (20:13)
[2021-11-17] MEDS ORDERED: SENNA 8.6 MG TAB (SENOKOT) PO SCH (21:00)
[2021-11-18] VITALS: BP 124/62
[2021-11-18] MEDS: LEVALBUTEROL 1.25 MG/0.5 ML CONCENTRATE NEB NEB SCH ×4 (02:15→19:31)
[2021-11-18] MEDS: MORPHINE 10 MG/ML 1ML VIAL (J2270) IV PRN ×4 (02:16→21:15)
[2021-11-18] MEDS: KETOROLAC 30 MG/ML 1ML VIAL IV PRN ×4 (03:51→11:03)
[2021-11-18] MEDS: methylPREDNISolone 125MG 2ML VIAL IV SCH ×2 (03:51→16:59)
[2021-11-18 04:00] VITALS: BP 111/58
[2021-11-18 05:50] LABS: BASO % 0.1 % (0.0-1.0); HEMATOCRIT 23.3 % (36.0-47.0); HEMOGLOBIN 7.5 g/dl (12.0-15.5); LYMPH # 0.3 10^3/uL (1.5-5.0); LYMPH % 4.1 % (24.0-44.0); MEAN CORPUSCULAR HEMOGLOBIN 32.5 pg (27.0-33.0); MEAN CORPUSCULAR HGB CONC 32.2 g/dl (32.0-36.5); MEAN CORPUSCULAR VOLUME 100.9 fl (80.0-96.0); MONO # 1.1 10^3/uL (0.0-0.8); MONO % 14.4 % (2.0-8.0); NEUTROPHILS # 5.8 10^3/uL (1.5-8.5); PLATELET COUNT, AUTOMATED 171 10^3/uL (150-450); RED BLOOD COUNT 2.31 10^6/uL (4.00-5.40); WHITE BLOOD COUNT 7.6 10^3/uL (4.0-10.0)
[2021-11-18 06:10] LABS: ALBUMIN 2.2 GM/DL (3.2-5.2); ALT/SGPT 84 U/L (12-78); BILIRUBIN,TOTAL 0.3 MG/DL (0.2-1.0); BLOOD UREA NITROGEN 22 MG/DL (7-18); CARBON DIOXIDE LEVEL 29 MEQ/L (21-32); CHLORIDE LEVEL 104 MEQ/L (98-107); CREATININE FOR GFR 0.45 MG/DL (0.55-1.30); GLOMERULAR FILTRATION RATE > 60.0 (>51); GLUCOSE, FASTING 150 MG/DL (70-100); POTASSIUM SERUM 4.4 MEQ/L (3.5-5.1); SODIUM LEVEL 137 MEQ/L (136-145); TOTAL PROTEIN 6.4 GM/DL (6.4-8.2)
[2021-11-18 08:00] VITALS: BP 118/57
[2021-11-18] MEDS: DOCUSATE SOD LIQ 100MG/10ML UDC GT SCH ×2 (09:07→21:14)
[2021-11-18] MEDS: LIDOCAINE 5% (LIDODERM) PATCH TD SCH (09:07)
[2021-11-18] MEDS: MIRALAX *UNIT DOSE* 17GM PACKET PEG SCH (09:07)
[2021-11-18] MEDS ORDERED: LevoFLOXacin IV 500 MG in IV 1 EA IV SCH (12:30)
[2021-11-18] MEDS ORDERED: MORPHINE 10 MG/ML 1ML VIAL (J2270) IV PRN (12:35)
[2021-11-18 12:54] VITALS: BP 120/68
[2021-11-18] MEDS ORDERED: LevoFLOXacin IV 750 MG in IV 1 EA IV SCH (15:00)
[2021-11-18 16:00] VITALS: BP 124/73
[2021-11-18] MEDS ORDERED: ATROPINE SULFATE 1% OP SOLN 2 ML BTL SL PRN (17:10)
[2021-11-18] MEDS: SENNA 8.6 MG TAB (SENOKOT) GT SCH (21:14)
[2021-11-18] MEDS: predniSONE 20 MG TAB GT SCH (21:14)
[2021-11-18] MEDS: **NOTE PATIENT COMMENT** MISC XX SCH (21:15)
[2021-11-18] MEDS: LORazepam 2 MG/ML VIAL IV PRN (21:58)
[2021-11-19] MEDS: LEVALBUTEROL 1.25 MG/0.5 ML CONCENTRATE NEB NEB SCH ×4 (01:39→19:27)
[2021-11-19] MEDS: MORPHINE 10 MG/ML 1ML VIAL (J2270) IV PRN ×7 (03:45→23:24)
[2021-11-19] MEDS: LORazepam 2 MG/ML VIAL IV PRN ×2 (05:03→14:10)
[2021-11-19] MEDS: LevoFLOXacin 750 MG TABLET PO SCH (05:08)
[2021-11-19] MEDS: DOCUSATE SOD LIQ 100MG/10ML UDC GT SCH ×2 (08:15→20:28)
[2021-11-19] MEDS: predniSONE 20 MG TAB GT SCH ×2 (08:15→20:28)
[2021-11-19] MEDS: MIRALAX *UNIT DOSE* 17GM PACKET PEG SCH (08:15)
[2021-11-19] MEDS: LIDOCAINE 5% (LIDODERM) PATCH TD SCH ×3 (08:17→09:00)
[2021-11-19] MEDS ORDERED: LORazepam 2 MG/ML VIAL As Ordered ONE (14:05)
[2021-11-19] MEDS: LACTULOSE 20 GM/30 ML SYRUP UD GT SCH ×3 (15:30→23:24)
[2021-11-19] MEDS: SENNA 8.6 MG TAB (SENOKOT) GT SCH (20:28)
[2021-11-19] MEDS: **NOTE PATIENT COMMENT** MISC XX SCH (21:00)
[2021-11-20] MEDS: LEVALBUTEROL 1.25 MG/0.5 ML CONCENTRATE NEB NEB SCH ×4 (01:00→20:00)
[2021-11-20] MEDS: MORPHINE 10 MG/ML 1ML VIAL (J2270) IV PRN ×7 (01:38→21:07)
[2021-11-20] MEDS: LACTULOSE 20 GM/30 ML SYRUP UD GT SCH ×3 (05:29→17:49)
[2021-11-20] MEDS: LevoFLOXacin 750 MG TABLET PO SCH (05:29)
[2021-11-20] MEDS: MIRALAX *UNIT DOSE* 17GM PACKET PEG SCH (09:06)
[2021-11-20] MEDS: predniSONE 20 MG TAB GT SCH (09:06)
[2021-11-20] MEDS: DOCUSATE SOD LIQ 100MG/10ML UDC GT SCH ×2 (09:06→19:52)
[2021-11-20] MEDS: LIDOCAINE 5% (LIDODERM) PATCH TD SCH (09:06)
[2021-11-20] MEDS: METHYLNALTREXONE BROMIDE 12 MG/0.6 ML VIAL (RELISTOR) SC SCH (09:06)
[2021-11-20] MEDS ORDERED: MORPHINE 10 MG/ML 1ML VIAL (J2270) IV PRN (10:15)
[2021-11-20] MEDS ORDERED: dexameTHASONE 4 MG/ML 1ML VIAL (J1100 PER 1MG) IV SCH (13:00)
[2021-11-20] MEDS: MORPHINE 30 MG SA TAB XX SCH ×2 (14:21→23:02)
[2021-11-20] MEDS ORDERED: PAMIDRONATE DISODIUM FOR INJ 60 MG in D5W 1,000 ML IV ONE (15:00)
[2021-11-20] MEDS: LORazepam 2 MG/ML VIAL IV PRN (17:45)
[2021-11-20] MEDS: traZODone 50 MG TAB PEG SCH (19:52)
[2021-11-20] MEDS: SENNA 8.6 MG TAB (SENOKOT) GT SCH (19:52)
[2021-11-20] MEDS: MEMANTINE 5MG TABLET (NAMENDA) GT SCH (19:52)
[2021-11-20] MEDS: **NOTE PATIENT COMMENT** MISC XX SCH (21:00)
[2021-11-21] MEDS: LEVALBUTEROL 1.25 MG/0.5 ML CONCENTRATE NEB NEB SCH ×4 (01:47→20:00)
[2021-11-21] MEDS: MORPHINE 10 MG/ML 1ML VIAL (J2270) IV PRN ×4 (02:19→14:25)
[2021-11-21] MEDS: LORazepam 2 MG/ML VIAL IV PRN ×2 (03:45→09:28)
[2021-11-21] MEDS: LACTULOSE 20 GM/30 ML SYRUP UD GT SCH ×4 (04:58→18:02)
[2021-11-21] MEDS: LevoFLOXacin 750 MG TABLET PO SCH (04:58)
[2021-11-21] MEDS: dexameTHASONE 4 MG/ML 1ML VIAL (J1100 PER 1MG) IV SCH ×3 (04:59→18:02)
[2021-11-21] MEDS ORDERED: predniSONE 20 MG TAB GT SCH (09:00)
[2021-11-21] MEDS: LIDOCAINE 5% (LIDODERM) PATCH TD SCH (09:00)
[2021-11-21] MEDS: DOCUSATE SOD LIQ 100MG/10ML UDC GT SCH ×2 (09:27→22:11)
[2021-11-21] MEDS: MEMANTINE 5MG TABLET (NAMENDA) GT SCH ×2 (09:27→22:08)
[2021-11-21] MEDS: MIRALAX *UNIT DOSE* 17GM PACKET PEG SCH (09:28)
[2021-11-21] MEDS: MORPHINE 30 MG SA TAB XX SCH ×2 (10:11→22:09)
[2021-11-21] MEDS: SENNA 8.6 MG TAB (SENOKOT) PEG SCH ×2 (12:45→22:10)
[2021-11-21] MEDS: LORazepam 1 MG TAB PEG PRN ×3 (13:53→22:08)
[2021-11-21] MEDS: MORPHINE 10MG/0.5ML ORAL CONCENTRATE SOLUTION U/D PEG PRN (18:04)
[2021-11-21] MEDS: **NOTE PATIENT COMMENT** MISC XX SCH (21:00)
[2021-11-21] MEDS: traZODone 50 MG TAB PEG SCH (22:10)
[2021-11-22] MEDS: LACTULOSE 20 GM/30 ML SYRUP UD GT SCH ×4 (00:12→17:49)
[2021-11-22] MEDS: dexameTHASONE 4 MG/ML 1ML VIAL (J1100 PER 1MG) IV SCH (00:12)
[2021-11-22] MEDS: LEVALBUTEROL 1.25 MG/0.5 ML CONCENTRATE NEB NEB SCH ×4 (02:00→19:44)
[2021-11-22] MEDS: LevoFLOXacin 750 MG TABLET PO SCH (06:25)
[2021-11-22] MEDS: LORazepam 1 MG TAB PEG PRN ×2 (07:44→12:12)
[2021-11-22] MEDS: MORPHINE 10MG/0.5ML ORAL CONCENTRATE SOLUTION U/D PEG PRN ×3 (07:44→22:43)
[2021-11-22] MEDS: LIDOCAINE 5% (LIDODERM) PATCH TD SCH ×2 (08:57→09:00)
[2021-11-22] MEDS: METHYLNALTREXONE BROMIDE 12 MG/0.6 ML VIAL (RELISTOR) SC SCH (08:58)
[2021-11-22] MEDS: MEMANTINE 5MG TABLET (NAMENDA) GT SCH ×2 (08:58→22:41)
[2021-11-22] MEDS: DOCUSATE SOD LIQ 100MG/10ML UDC GT SCH ×2 (08:58→22:40)
[2021-11-22] MEDS: MIRALAX *UNIT DOSE* 17GM PACKET PEG SCH (08:58)
[2021-11-22] MEDS: SENNA 8.6 MG TAB (SENOKOT) PEG SCH ×2 (08:58→22:40)
[2021-11-22] MEDS: MORPHINE 30 MG SA TAB XX SCH ×2 (08:59→22:40)
[2021-11-22] MEDS: MORPHINE 10 MG/ML 1ML VIAL (J2270) IV PRN ×2 (10:29→14:32)
[2021-11-22] MEDS: NS 1,000 ML IV SCH (13:28)
[2021-11-22] MEDS: SIMETHICONE 40MG/0.6ML DROPS 30ML PEG SCH ×3 (13:28→22:41)
[2021-11-22] MEDS: LORazepam 2 MG TAB PEG PRN ×2 (15:00→17:49)
[2021-11-22] MEDS: MORPHINE 10MG/0.5ML ORAL CONCENTRATE SOLUTION U/D SL SCH (17:50)
[2021-11-22] MEDS: **NOTE PATIENT COMMENT** MISC XX SCH (21:00)
[2021-11-22] MEDS: traZODone 50 MG TAB PEG SCH (22:41)
[2021-11-23] MEDS: LACTULOSE 20 GM/30 ML SYRUP UD GT SCH ×4 (00:34→18:00)
[2021-11-23] MEDS: MORPHINE 10MG/0.5ML ORAL CONCENTRATE SOLUTION U/D SL SCH ×4 (00:35→18:00)
[2021-11-23] MEDS: LEVALBUTEROL 1.25 MG/0.5 ML CONCENTRATE NEB NEB SCH ×3 (02:08→14:36)
[2021-11-23] MEDS: LevoFLOXacin 750 MG TABLET PO SCH (06:38)
[2021-11-23] MEDS: SENNA 8.6 MG TAB (SENOKOT) PEG SCH (09:00)
[2021-11-23] MEDS: DOCUSATE SOD LIQ 100MG/10ML UDC GT SCH (09:00)
[2021-11-23] MEDS: LIDOCAINE 5% (LIDODERM) PATCH TD SCH (09:00)
[2021-11-23] MEDS: MEMANTINE 5MG TABLET (NAMENDA) GT SCH (10:06)
[2021-11-23] MEDS: SIMETHICONE 40MG/0.6ML DROPS 30ML PEG SCH ×3 (10:07→17:00)
[2021-11-23] MEDS: MORPHINE 10MG/0.5ML ORAL CONCENTRATE SOLUTION U/D PEG PRN (10:09)
[2021-11-23] MEDS: MORPHINE 30 MG SA TAB XX SCH (10:10)
[2021-11-23] MEDS: NS 1,000 ML IV SCH (13:54)
== END 2021-11-23 18:20 | disposition expired | DRG 133 ==
LOC: M ED 21:07 → EDBD 21:07 → UNDOADMOB 21:08 → M ED INP 21:08 → OBSVTOIN 11-17 02:51 → M PCU 11-17 04:15 → M ED INP 11-17 04:15 → M MSPAV 11-18 18:23
PROVIDERS: ADMIT Family Medicine; ATTEND General Practice
DX: J96.21 Acute and chronic respiratory failure with hypoxia (principal); J18.9 Pneumonia, unspecified organism; E46 Unspecified protein-calorie malnutrition; Z93.0 Tracheostomy status; K94.23 Gastrostomy malfunction; R64 Cachexia; C79.51 Secondary malignant neoplasm of bone; C78.7 Secondary malignant neoplasm of liver and intrahepatic bile duct; C34.90 Malignant neoplasm of unspecified part of unspecified bronchus or lung; J38.00 Paralysis of vocal cords and larynx, unspecified; Z93.1 Gastrostomy status; J44.1 Chronic obstructive pulmonary disease with (acute) exacerbation; K72.10 Chronic hepatic failure without coma; G89.3 Neoplasm related pain (acute) (chronic); K59.03 Drug induced constipation; R74.01 Elevation of levels of liver transaminase levels; R53.1 Weakness; Z68.1 Body mass index [BMI] 19.9 or less, adult; D63.8 Anemia in other chronic diseases classified elsewhere; Z51.5 Encounter for palliative care; Z88.0 Allergy status to penicillin; Z88.2 Allergy status to sulfonamides; Z88.8 Allergy status to other drugs, medicaments and biological substances; Z66 Do not resuscitate; Z79.899 Other long term (current) drug therapy